=== PATIENT | female | born 1995 | race Hispanic/Latino ===

== ENCOUNTER 2019-03-31 10:25 | Emergency (ER) | payer SELFPAY ==
[2019-03-31] MEDS ORDERED: ONDANSETRON 4 MG (ODT) TAB ONE (10:54)
[2019-03-31] MEDS ORDERED: ACETAMINOPHEN 500 MG TAB ONE (11:01)
--- NOTE | 2019-03-31 11:24 | EDPHYS ---
Physician Documentation [facility] Name: Xochitl Walters Age: 23 yrs Sex: Female : 1995 Arrival Date: 03/31/2019 Time: 10:27 Bed 5 Private MD: ED Physician Claudio Beltran HPI: 03/31 10:53 This 23 yrs old Female presents to ER via Ambulatory with complaints of Flu jmm Symptoms. 10:53 The patient or guardian reports cough. Onset: The symptoms/episode began/occurred jmm gradually, 1 day(s) ago. Modifying factors: The symptoms are alleviated by nothing. the symptoms are aggravated by nothing. Associated signs and symptoms: Pertinent positives: earache, fever, sore throat, vomiting. This is a 23 year old female with no chronic medical conditions that presents to the ED with complaints of cough, ear pain, sore throat, vomiting beginning last night. Patient states children recently had similar symptoms. Patient states episodes of vomiting occur after drinking water. . Historical: - Allergies: 10:28 No Known Allergies; sv - PMHx: 10:30 None; sv - PSHx: 10:30 None; sv - Immunization history:: Adult Immunizations up to date. - Social history:: Smoking status: Patient/guardian denies using tobacco. - Ebola Screening: : No symptoms or risks identified at this time. ROS: 10:53 Constitutional: Negative for fever, chills, and weight loss. jmm 10:53 ENT: Positive for ear pain, sinus congestion, sore throat. 10:53 Cardiovascular: Positive for chest pain, with cough. 10:53 Respiratory: Positive for cough. 10:53 Abdomen/GI: Positive for vomiting. 10:53 All other systems are negative. Exam: 10:53 Constitutional: This is a well developed, well nourished patient who is awake, alert, jmm and in no acute distress. Head/Face: atraumatic. Eyes: EOMI, no conjunctival erythema appreciated 10:53 Neck: Trachea midline, Supple Chest/axilla: Normal chest wall appearance and motion. 10:53 Abdomen/GI: Non distended, soft Back: Normal ROM Skin: General appearance color normal MS/ Extremity: Moves all extremities, no obvious deformities appreciated, no edema noted to the lower extremities Neuro: Awake and alert, normal gait Psych: Behavior is normal, Mood is normal, Patient is cooperative and pleasant 10:53 ENT: TM's: erythema, that is mild, bilaterally, Posterior pharynx: Uvula: midline, erythema, that is moderate, peritonsillar mass, is not appreciated. 10:53 Cardiovascular: Rate: normal, Rhythm: regular, Pulses: no pulse deficits are appreciated. 10:53 Respiratory: the patient does not display signs of respiratory distress, Respirations: normal, Breath sounds: are clear throughout. 10:53 Abdomen/GI: Inspection: Vital Signs: 10:30 BP 113 / 79; Pulse 116; Resp 20; Temp 99.9(O); Pulse Ox 97% ; Weight 71.67 kg; Height 5 sv ft. 4 in. (162.56 cm); 11:34 BP 121 / 75; Pulse 99; Resp 19; Temp 99.1; Pulse Ox 97% ; bp 10:30 Body Mass Index 27.12 (71.67 kg, 162.56 cm) sv MDM: 10:46 Patient medically screened. [facility] 11:22 Data reviewed: vital signs, nurses notes. Counseling: I had a detailed discussion with kerri the patient and/or guardian regarding: the historical points, exam findings, and any diagnostic results supporting the discharge/admit diagnosis, lab results, radiology results, the need for outpatient follow up, to return to the emergency department if symptoms worsen or persist or if there are any questions or concerns that arise at home. ED course: Patient is alert and non toxic in appearance in the ED. Patient tolerates PO in the ED. Patient was otherwise given strict return precautions. Patient understood and agrees with the plan of care. . 03/31 10:45 Order name: Flu; Complete Time: 11:13 [facility] 03/31 10:45 Order name: Strep; Complete Time: 11:13 [facility] 03/31 10:45 Order name: Chest Pa And Lat (2 Views) XRAY [facility] 03/31 11:14 Order name: Throat Culture EDMS Administered Medications: 10:50 Drug: Zofran 4 mg Route: PO; bp 11:24 Follow up: Response: Nausea is decreased bp 11:02 Drug: Tylenol 1000 mg Route: PO; bp 11:24 Follow up: Response: No adverse reaction bp Disposition: 12:16 Co-signature as Attending Physician, Claudio Beltran MD I agree with the assessment and kdr plan of care. Disposition: 03/31/19 11:23 Discharged to Home. Impression: Influenza due to certain identified influenza viruses. - Condition is Stable. - Discharge Instructions: Influenza, Adult. - Prescriptions for Zofran ODT 4 mg Oral tablet,disintegrating - place 1 tablet by TRANSLINGUAL route every 4-6 hours; 20 tablet. Tamiflu 75 mg Oral Capsule - take 1 tablet by ORAL route every 12 hours for 5 days; 20 tablet. - Medication Reconciliation Form, Thank You Letter, Antibiotic Education, Prescription Opioid Use form. - Follow up: Private Physician; When: 2 - 3 days; Reason: Recheck today's complaints, Continuance of care, Re-evaluation by your physician. Signatures: Dispatcher [employer] EDThea Bowen, RN RN Claudio Perez MD MD [facility] Aldo Steward PA PA jmm Peltier, Brian RN RN bp Corrections: (The following items were deleted from the chart) 11:36 11:23 03/31/2019 11:23 Discharged to Home. Impression: Influenza due to certain bp identified influenza viruses. Condition is Stable. Forms are Medication Reconciliation Form, Thank You Letter, Antibiotic Education, Prescription Opioid Use. Follow up: Private Physician; When: 2 - 3 days; Reason: Recheck today's complaints, Continuance of care, Re-evaluation by your physician. francisca
--- NOTE | 2019-03-31 11:24 | ER ---
Nurse's Notes [facility] Name: Xochitl Walters Age: 23 yrs Sex: Female : 1995 Arrival Date: 03/31/2019 Time: 10:27 Bed 5 Private MD: Diagnosis: Influenza due to certain identified influenza viruses Presentation: 03/31 10:29 Presenting complaint: Patient states: body aches, chest pain with coughing, vomiting sv started yesterday. Transition of care: patient was not received from another setting of care. Onset of symptoms was March 30, 2019. Risk Assessment: Do you want to hurt yourself or someone else? Patient reports no desire to harm self or others. Care prior to arrival: None. 10:29 Method Of Arrival: Ambulatory sv 10:29 Acuity: ANGELY 3 sv 11:36 Initial Sepsis Screen: Does the patient meet any 2 criteria? HR > 90 bpm. No. Patient's bp initial sepsis screen is negative. Does the patient have a suspected source of infection? Yes: Productive cough/pneumonia. Triage Assessment: 10:30 General: Appears in no apparent distress. comfortable, ill, Behavior is cooperative, bp appropriate for age, anxious. Pain: Complains of pain in GENERAL MYALGIA. EENT: Reports nasal discharge. Neuro: No deficits noted. Cardiovascular: Rhythm is sinus tachycardia. Respiratory: Reports cough that is. GI: No signs and/or symptoms were reported involving the gastrointestinal system. : No signs and/or symptoms were reported regarding the genitourinary system. Derm: No deficits noted. Musculoskeletal: No deficits noted. Historical: - Allergies: 10:28 No Known Allergies; sv - PMHx: 10:30 None; sv - PSHx: 10:30 None; sv - Immunization history:: Adult Immunizations up to date. - Social history:: Smoking status: Patient/guardian denies using tobacco. - Ebola Screening: : No symptoms or risks identified at this time. Screenin:40 Abuse screen: Denies threats or abuse. Denies injuries from another. Nutritional bp screening: No deficits noted. Tuberculosis screening: No symptoms or risk factors identified. Fall Risk None identified. Assessment: 10:30 General: SEE TRIAGE NOTE. bp 11:34 Reassessment: PT D/C HOME AMBULATORY WITH FAMILY, DX WITH INFLUENZA. bp Vital Signs: 10:30 BP 113 / 79; Pulse 116; Resp 20; Temp 99.9(O); Pulse Ox 97% ; Weight 71.67 kg; Height 5 sv ft. 4 in. (162.56 cm); 11:34 BP 121 / 75; Pulse 99; Resp 19; Temp 99.1; Pulse Ox 97% ; bp 10:30 Body Mass Index 27.12 (71.67 kg, 162.56 cm) sv ED Course: 10:27 Patient arrived in ED. mr 10:28 Arm band placed on. sv 10:29 Triage completed. sv 10:32 Aldo Steward PA is PHCP. [facility] 10:32 Claudio eBltran MD is Attending Physician. [facility] 10:38 Christian Merlos, RN is Primary Nurse. bp 10:40 Patient has correct armband on for positive identification. Bed in low position. Call bp light in reach. Side rails up X2. 10:57 Strep Sent. bp 10:57 Flu Sent. bp 11:11 Chest Pa And Lat (2 Views) XRAY In Process Unspecified. EDMS 11:34 No provider procedures requiring assistance completed. Patient did not have IV access bp during this emergency room visit. Administered Medications: 10:50 Drug: Zofran 4 mg Route: PO; bp 11:24 Follow up: Response: Nausea is decreased bp 11:02 Drug: Tylenol 1000 mg Route: PO; bp 11:24 Follow up: Response: No adverse reaction bp Outcome: 11:23 Discharge ordered by MD. jmm 11:34 Discharged to home ambulatory, with family. bp 11:34 Condition: stable 11:34 Discharge instructions given to patient, Instructed on discharge instructions, follow up and referral plans. medication usage, Demonstrated understanding of instructions, follow-up care, medications, Prescriptions given X 2. 11:36 Patient left the ED. bp Signatures: Dispatcher [employer] EDMS Thea Fong RN RN Aldo Steward PA PA Kandi Tamayo mr Christian Merlos, RN RN bp Corrections: (The following items were deleted from the chart) 10:31 10:30 Resp 20bpm; Pulse Ox 97%; Temp 99.9F Oral; 71.67 kg; Height 5 ft. 4 in.; BMI: sv 27.1; sv
[2019-03-31 12:14] VITALS: O2SAT 97
[2019-03-31 12:15] VITALS: BP 121/75; TEMP 99.1
--- NOTE | 2019-03-31 12:15 | RAD REPORT ---
EXAM DESCRIPTION: Wendy Zambrano (2 Views)03/31/2019 11:12 am CLINICAL HISTORY: Cough COMPARISON: None FINDINGS: The lungs appear clear of acute infiltrate. The heart is normal size IMPRESSION: No acute abnormalities displayed
== END 2019-03-31 11:36 | disposition home or self-care (01) ==
LOC: ER 10:25
DX: J10.1 Influenza due to other identified influenza virus with other respiratory manifestations (principal)
CPT/HCPCS: 71046; 87070; 87081; 87804; 99284

== ENCOUNTER 2019-07-15 15:48 | Emergency (ER) | payer SELFPAY ==
[2019-07-15] MEDS ORDERED: HYDROCODONE/APAP 7.5/325 MG TAB ONE (16:30)
--- NOTE | 2019-07-15 17:44 | RAD REPORT ---
EXAM DESCRIPTION: RAD - Ankle Left 3 View -07/15/2019 5:01 pm CLINICAL HISTORY: Left ankle pain status post injury FINDINGS: No fracture or dislocation is seen.
--- NOTE | 2019-07-15 17:46 | RAD REPORT ---
EXAM DESCRIPTION: RAD - Foot Left 3 View - 07/15/2019 4:59 pm CLINICAL HISTORY: Left Foot pain FINDINGS: No fracture or dislocation is seen.
--- NOTE | 2019-07-15 17:49 | EDPHYS ---
Physician Documentation [facility] Name: Xochitl Walters Age: 24 yrs Sex: Female : 1995 Arrival Date: 07/15/2019 Time: 15:49 Bed 30 Private MD: ED Physician Kamran Fair HPI: 07/14 17:21 This 24 yrs old Female presents to ER via Wheelchair with complaints of Foot kb Pain. 17:21 The patient presents with decreased range of motion, an injury, pain, swelling, kb tenderness. The complaints affect the anterior aspect of left ankle and left foot. Context: The problem was sustained at home, resulted from the patient falling, the patient is not able to bear weight, the patient is not able to ambulate. Onset: The symptoms/episode began/occurred 2 hour(s) ago. Modifying factors: The symptoms are alleviated by nothing. the symptoms are aggravated by movement, weight bearing. Associated signs and symptoms: Pertinent positives: swelling. Treatment prior to arrival includes: no previous treatment. Severity of symptoms: At their worst the symptoms were moderate, in the emergency department the symptoms are unchanged. The patient has not experienced similar symptoms in the past. The patient has not recently seen a physician. 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 - Social history:: Smoking status: Patient reports the use of cigarette tobacco products, 3 cigarettes. ROS: 17:18 Constitutional: Negative for fever, chills, and weight loss, Cardiovascular: Negative kb for chest pain, palpitations, and edema, Respiratory: Negative for shortness of breath, cough, wheezing, and pleuritic chest pain, Abdomen/GI: Negative for abdominal pain, nausea, vomiting, diarrhea, and constipation, Skin: Negative for injury, rash, and discoloration, Neuro: Negative for headache, weakness, numbness, tingling, and seizure. 17:18 MS/extremity: Positive for decreased range of motion, pain, swelling, tenderness, of the left foot and anterior aspect of left ankle. Exam: 17:21 Constitutional: This is a well developed, well nourished patient who is awake, alert, kb and in no acute distress. Head/Face: Normocephalic, atraumatic. Neck: Trachea midline, no thyromegaly or masses palpated, and no cervical lymphadenopathy. Supple, full range of motion without nuchal rigidity, or vertebral point tenderness. No Meningismus. Chest/axilla: Normal chest wall appearance and motion. Nontender with no deformity. No lesions are appreciated. Cardiovascular: Regular rate and rhythm with a normal S1 and S2. No gallops, murmurs, or rubs. Normal PMI, no JVD. No pulse deficits. Respiratory: Lungs have equal breath sounds bilaterally, clear to auscultation and percussion. No rales, rhonchi or wheezes noted. No increased work of breathing, no retractions or nasal flaring. Abdomen/GI: Soft, non-tender, with normal bowel sounds. No distension or tympany. No guarding or rebound. No evidence of tenderness throughout. Skin: Warm, dry with normal turgor. Normal color with no rashes, no lesions, and no evidence of cellulitis. Neuro: Awake and alert, GCS 15, oriented to person, place, time, and situation. Cranial nerves II-XII grossly intact. Motor strength 5/5 in all extremities. Sensory grossly intact. Cerebellar exam normal. Normal gait. 17:21 Musculoskeletal/extremity: Extremities: grossly normal except: noted in the left foot and anterior aspect of left ankle: decreased ROM, pain, swelling, tenderness, ROM: limited active range of motion due to pain, in the left foot, Circulation is intact in all extremities. Sensation intact. Weight bearing: is unable to bear weight. Vital Signs: 16:01 BP 142 / 118; Pulse 99; Resp 19; Temp 99(TE); Pulse Ox 100% on R/A; Weight 77.11 kg tw2 (R); Height 5 ft. 3 in. (160.02 cm); Pain 10/10; 17:00 BP 103 / 79; Pulse 88; Resp 16 S; Pulse Ox 99% on R/A; Pain 3/10; aa5 17:59 BP 128 / 77; Pulse 78; Resp 16; Temp 98.4(O); Pulse Ox 99% on R/A; Pain 3/10; ls4 16:01 Body Mass Index 30.11 (77.11 kg, 160.02 cm) tw2 MDM: 16:05 Patient medically screened. kb 17:21 Data reviewed: vital signs, nurses notes. Data interpreted: Pulse oximetry: on room air kb is 100 %. Interpretation: normal. 17:48 Counseling: I had a detailed discussion with the patient and/or guardian regarding: the kb historical points, exam findings, and any diagnostic results supporting the discharge/admit diagnosis, radiology results, the need for outpatient follow up, a family practitioner, to return to the emergency department if symptoms worsen or persist or if there are any questions or concerns that arise at home. 07/14 16:05 Order name: Foot Left 3 View XRAY; Complete Time: 17:48 kb 07/14 16:12 Order name: Ankle Left 3 View XRAY; Complete Time: 17:45 kb 07/14 17:49 Order name: Frank Wrap; Complete Time: 18:04 kb Administered Medications: 16:25 Drug: [place] (7.5 mg-325 mg) 1 tabs Route: PO; aa5 17:59 Follow up: Response: No adverse reaction; Marked relief of symptoms ls4 Disposition: 18:42 Co-signature as Attending Physician, Kamran Fair MD. rn Disposition: 07/15/19 17:49 Discharged to Home. Impression: Other sprain of left foot. - Condition is Stable. - Discharge Instructions: Foot Sprain. - Prescriptions for Diclofenac Sodium 75 mg Oral Tablet, Delayed Release (E.C.) - take 1 tablet by ORAL route 2 times per day As needed; 30 tablet. - Medication Reconciliation Form, Thank You Letter, Antibiotic Education, Prescription Opioid Use form. - Follow up: Emergency Department; When: As needed; Reason: Worsening of condition. Follow up: Private Physician; When: 2 - 3 days; Reason: Recheck today's complaints, Continuance of care, Re-evaluation by your physician. Signatures: Dispatcher [employer] Tari Andrew, GURU-C CLINICAL APPLICATIONS SPECIALIST-CkKamran Villagran MD MD rn Calderon, Audri, RN RN aa5 Mckayla Dinh RN RN tw2 Roselyn Montelongo RN RN ls4 Corrections: (The following items were deleted from the chart) 18:00 17:49 07/15/2019 17:49 Discharged to Home. Impression: Other sprain of left foot. ls4 Condition is Stable. Forms are Medication Reconciliation Form, Thank You Letter, Antibiotic Education, Prescription Opioid Use. Follow up: Emergency Department; When: As needed; Reason: Worsening of condition. Follow up: Private Physician; When: 2 - 3 days; Reason: Recheck today's complaints, Continuance of care, Re-evaluation by your physician. kb
--- NOTE | 2019-07-15 17:49 | ER ---
Nurse's Notes [facility] Name: Xochitl Walters Age: 24 yrs Sex: Female : 1995 Arrival Date: 07/15/2019 Time: 15:49 Bed 30 Private MD: Diagnosis: Other sprain of left foot Presentation: 07/14 16:01 Chief complaint: Patient states: my LEFT foot hurts, it started about 2 hours ago, i tw2 was coming down the stairs and i tripped and fell, and it was fine afterwards and it just started hurting really really bad. Coronavirus screen: The patient has NOT traveled to a country currently being monitored by the CDC within the last 14 days. Ebola Screen: Patient denies travel to an Ebola-affected area in the 21 days before illness onset. Initial Sepsis Screen: Does the patient meet any 2 criteria? HR > 90 bpm. No. Patient's initial sepsis screen is negative. Does the patient have a suspected source of infection? No. Patient's initial sepsis screen is negative. Risk Assessment: Do you want to hurt yourself or someone else? Patient reports no desire to harm self or others. Note pt is crying in triage at this time. 16:01 Method Of Arrival: Wheelchair tw2 16:01 Acuity: ANGELY 4 tw2 Triage Assessment: 16:03 General: Appears uncomfortable, slender, Behavior is crying. Pain: Complains of pain in tw2 left lateral ankle, lateral aspect of left foot, left Achilles, left heel, left medial ankle, medial aspect of left foot, anterior aspect of left ankle and dorsum of left foot. 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 - Social history:: Smoking status: Patient reports the use of cigarette tobacco products, 3 cigarettes. Screenin:15 Abuse screen: Denies threats or abuse. Nutritional screening: No deficits noted. aa5 Tuberculosis screening: No symptoms or risk factors identified. Fall Risk None identified. Assessment: 16:15 General: Appears uncomfortable, Behavior is cooperative, crying. Pain: Complains of aa5 pain in left foot Pain does not radiate. Pain currently is 10 out of 10 on a pain scale. Quality of pain is described as burning, sharp, shooting, Is continuous. Neuro: Level of Consciousness is awake, alert, obeys commands, Oriented to person, place, time, situation. Cardiovascular: Capillary refill < 3 seconds is brisk in bilateral fingers toes. Respiratory: Airway is patent Respiratory effort is even, unlabored, Respiratory pattern is regular, symmetrical. GI: No signs and/or symptoms were reported involving the gastrointestinal system. : No signs and/or symptoms were reported regarding the genitourinary system. EENT: No signs and/or symptoms were reported regarding the EENT system. Derm: Skin is pink, warm \T\ dry. Musculoskeletal: Range of motion: intact in all extremities. 16:30 Reassessment: Ice pack applied to left foot . aa5 17:00 Reassessment: Patient is alert, oriented x 3, equal unlabored respirations, skin aa5 warm/dry/pink. Patient states feeling better. Pain: Pain currently is 3 out of 10 on a pain scale. 17:59 Reassessment: Patient appears in no apparent distress at this time. Patient and/or ls4 family updated on plan of care and expected duration. Pain level reassessed. Patient is alert, oriented x 3, equal unlabored respirations, skin warm/dry/pink. AUDIE WRAP TO LEFT FOOT AND ANKLE. CMS INTACT DISTAL TO INJURY. Vital Signs: 16:01 BP 142 / 118; Pulse 99; Resp 19; Temp 99(TE); Pulse Ox 100% on R/A; Weight 77.11 kg tw2 (R); Height 5 ft. 3 in. (160.02 cm); Pain 10/10; 17:00 BP 103 / 79; Pulse 88; Resp 16 S; Pulse Ox 99% on R/A; Pain 3/10; aa5 17:59 BP 128 / 77; Pulse 78; Resp 16; Temp 98.4(O); Pulse Ox 99% on R/A; Pain 3/10; ls4 16:01 Body Mass Index 30.11 (77.11 kg, 160.02 cm) tw2 ED Course: 15:49 Patient arrived in ED. ag5 16:03 Triage completed. tw2 16:03 Arm band placed on. tw2 16:05 Tari Jeff [facility]C [facility]. kb 16:05 Kamran Fair MD is Attending Physician. kb 16:15 Patient has correct armband on for positive identification. Bed in low position. Call aa5 light in reach. Side rails up X 1. 16:29 Dorothea Chapman, RN is Primary Nurse. aa5 16:59 Foot Left 3 View XRAY In Process Unspecified. EDMS 17:01 Ankle Left 3 View XRAY In Process Unspecified. EDMS 18:00 No provider procedures requiring assistance completed. Patient did not have IV access aa5 during this emergency room visit. Administered Medications: 16:25 Drug: [place] (7.5 mg-325 mg) 1 tabs Route: PO; aa5 17:59 Follow up: Response: No adverse reaction; Marked relief of symptoms ls4 Outcome: 17:49 Discharge ordered by MD. kb 17:59 Discharged to home ambulatory, with family. aa5 17:59 Condition: improved 17:59 Discharge instructions given to patient, Instructed on discharge instructions, follow up and referral plans. medication usage, Demonstrated understanding of instructions, follow-up care, medications, Prescriptions given X 1. 18:00 Patient left the ED. ls4 Signatures: Dispatcher [employer] EDVT Tari Jeff FNP-C X RAY PHYSICIAN-Vinnyb Dorothea Chapman, RN RN aa5 Mckayla Dinh RN RN tw2 Roselyn Montelongo RN RN ls4 Geoffrey Boswell ag5 Corrections: (The following items were deleted from the chart) 18:13 16:15 Reassessment: Ice pack applied to left foot . aa5 aa5
[2019-07-15 18:09] VITALS: BP 128/77; TEMP 98.4; O2SAT 99
== END 2019-07-15 18:00 | disposition home or self-care (01) ==
LOC: ER 15:48
DX: S93.692A Other sprain of left foot, initial encounter (principal); W19.XXXA Unspecified fall, initial encounter; Y93.9 Activity, unspecified; Y92.9 Unspecified place or not applicable; Z72.0 Tobacco use
CPT/HCPCS: 99283

== ENCOUNTER 2020-06-20 16:21 | Emergency (ER) | payer SELFPAY ==
[2020-06-20 16:51] LABS: Urine Blood 1+ (NEG); Urine Glucose NEGATIVE (NEG); Urine Protein NEGATIVE (NEG); Urine Specific Gravity >1.030 (1.005-1.030); Urine pH 6.5 (5.0-7.0)
[2020-06-20 17:12] LABS: BUN Blood Urea Nitrogen 14 mg/dL (7-18); Bicarbonate 28 mmol/L (21-32); Glucose Level 122 mg/dL (74-106); Potassium 3.7 mmol/L (3.5-5.1); Sodium Level 141 mmol/L (136-145)
[2020-06-20 17:18] LABS: Absolute Lymphocytes (CBC) 2.4 K/uL (0.7-4.9); Basophils % 0.3 % (0-1.3); Hematocrit 38.8 % (36.0-45.0); MPV 9.9 fL (7.6-11.3); RBC Red Blood Cell Count 4.19 M/uL (3.86-4.86)
[2020-06-20] MEDS ORDERED: NA CHLORIDE 0.9% 1,000 ML ONE (17:47)
--- NOTE | 2020-06-20 18:07 | RAD REPORT ---
EXAM DESCRIPTION: CT - Abdomen Pelvis W Contrast - 06/20/2020 5:53 pm CLINICAL HISTORY: ABD PAIN COMPARISON: <Comparisons> TECHNIQUE: Biphasic, helical CT imaging of the abdomen and pelvis was performed following 100 ml non -ionic IV contrast. No oral contrast. All CT scans are performed using dose optimization technique as appropriate and may include automated exposure control or mA/KV adjustment according to patient size. FINDINGS: No suspicious findings in the lung bases. The liver, spleen, and pancreas show no suspicious findings. Gallbladder and biliary tree are also wi thout suspicious finding. Liver shows borderline fatty infiltration Symmetric renal function is seen with no hydronephrosis or suspicious renal mass. No pyelonephritis o r acute parenchymal process. No bladder abnormalities. No adrenal abnormalities. Uterus and ovaries s how no suspicious findings. No dilated bowel loops or bowel wall thickening. No appendicitis. No free air, free fluid or inflamma tory stranding. No hernia, mass or bulky lymphadenopathy. A few small 10 mm or less sized mesenteric lymph nodes are present. No suspicious bony findings. IMPRESSION: Contrast enhanced CT abdomen and pelvis showing no significant or suspicious finding.
--- NOTE | 2020-06-20 18:12 | ER ---
Nurse's Notes [facility] Name: Xochitl Walters Age: 25 yrs Sex: Female : 1995 Arrival Date: 06/20/2020 Time: 16:23 Bed 8 Private MD: Diagnosis: Lower abdominal pain, unspecified Presentation: 06/20 16:25 Chief complaint: Patient states: was feeling light headed and dizzy this morning, has iw had abd pain for 2 months and also having abnormal BM for a couple months also , also feeling SOB , no fever chills , and also has sore throat X 2 days. Ebola Screen: Patient negative for fever greater than or equal to 101.5 degrees Fahrenheit, and additional compatible Ebola Virus Disease symptoms Patient denies exposure to infectious person. Patient denies travel to an Ebola-affected area in the 21 days before illness onset. No symptoms or risks identified at this time. Initial Sepsis Screen: Does the patient meet any 2 criteria? No. Patient's initial sepsis screen is negative. Does the patient have a suspected source of infection? No. Patient's initial sepsis screen is negative. Risk Assessment: Do you want to hurt yourself or someone else? Patient reports no desire to harm self or others. Onset of symptoms was April 2020. 16:25 Acuity: ANGELY 3 iw 16:25 Method Of Arrival: Ambulatory iw Triage Assessment: 16:40 General: Appears in no apparent distress. comfortable, Behavior is cooperative, bp appropriate for age, anxious. Pain: Complains of pain in abdomen. EENT: Reports pain when swallowing. Neuro: Level of Consciousness is awake, alert, obeys commands, Oriented to Appropriate for age. Cardiovascular: No deficits noted. Respiratory: No deficits noted. GI: Reports constipation, diarrhea. : No signs and/or symptoms were reported regarding the genitourinary system. Derm: No deficits noted. Musculoskeletal: No deficits noted. 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 - Social history:: Smoking status: Patient reports the use of cigarette tobacco products, denies chronic smoking, but will smoke occasionally. Screenin:46 Abuse screen: Denies threats or abuse. Denies injuries from another. Nutritional bp screening: No deficits noted. Tuberculosis screening: No symptoms or risk factors identified. Fall Risk None identified. Assessment: 16:40 General: SEE TRIAGE NOTE. bp 17:30 Reassessment: Patient appears in no apparent distress at this time. No changes from jl7 previously documented assessment. Patient and/or family updated on plan of care and expected duration. Pain level reassessed. Patient is alert, oriented x 3, equal unlabored respirations, skin warm/dry/pink. Vital Signs: 16:25 BP 118 / 85; Pulse 79; Resp 16; Temp 98.4; Pulse Ox 100% on R/A; Weight 72.57 kg; iw Height 5 ft. 4 in. (162.56 cm); 16:52 BP 106 / 69 Sitting; Pulse 80; Resp 16; Pulse Ox 100% on R/A; mh5 16:54 BP 105 / 68 Standing; Pulse 84; Resp 16; Pulse Ox 100% on R/A; mh5 16:56 BP 98 / 78 Supine; Pulse 76; Resp 16; Pulse Ox 100% on R/A; mh5 16:25 Body Mass Index 27.46 (72.57 kg, 162.56 cm) iw ED Course: 16:23 Patient arrived in ED. ag5 16:23 Tari Jeff FNP-C is [facility]. kb 16:23 Claudio Beltran MD is Attending Physician. kb 16:27 Triage completed. iw 16:28 Christian Merlos, KEO is Primary Nurse. bp 16:45 Arm band placed on. bp 16:46 Patient has correct armband on for positive identification. Bed in low position. Call bp light in reach. Side rails up X2. 16:50 Basic Metabolic Panel Sent. mh5 16:50 Basic Metabolic Panel Sent. 5 16:50 CBC with Diff Sent. 5 16:51 Initial lab(s) drawn, by me, sent to lab. Urine collected: clean catch specimen, 5 cloudy. Inserted saline lock: 22 gauge in left antecubital area, using aseptic technique. Blood collected. 17:52 CT Abd/Pelvis - IV Contrast Only In Process Unspecified. EDMS 18:22 No provider procedures requiring assistance completed. IV discontinued, intact, jl7 bleeding controlled, No redness/swelling at site. Pressure dressing applied. Administered Medications: 17:33 Drug: NS 0.9% 1000 ml Route: IV; Rate: 1000 ml; Site: left antecubital; jl7 18:21 Follow up: Response: No adverse reaction; IV Status: IV converted to saline lock; Order jl7 to discontinue infusion; IV Intake: 300ml Intake: 18:21 IV: 300ml; Total: 300ml. jl7 Outcome: 18:11 Discharge ordered by MD. moreno 18:22 Discharged to home ambulatory. jl7 18:22 Condition: stable 18:22 Discharge instructions given to patient, Instructed on discharge instructions, follow up and referral plans. Demonstrated understanding of instructions, follow-up care. 18:22 Patient left the ED. jl7 Signatures: Dispatcher [employer] EDTari Hammonds, MEMBERSHIP SALES ADVISOR-C MEMBERSHIP SALES ADVISOR-Ckb Diana Jacobs, RN Olga Chambers [facility] Felix Gaming RN RN jl7 Christian Merlos RN RN bp [place], Ajare [facility]
--- NOTE | 2020-06-20 18:12 | EDPHYS ---
Physician Documentation [facility] Name: Xochitl Walters Age: 25 yrs Sex: Female : 1995 Arrival Date: 06/20/2020 Time: 16:23 Bed 8 Private MD: ED Physician Claudio Beltran HPI: 06/20 17:29 This 25 yrs old Female presents to ER via Ambulatory with complaints of kb Dizziness, Abdominal Pain, Sore Throat. 17:29 The patient presents with abdominal pain in the lower abdomen. Onset: The kb symptoms/episode began/occurred 2 month(s) ago. The symptoms do not radiate. Associated signs and symptoms: Pertinent positives: diarrhea. The symptoms are described as crampy. Modifying factors: The symptoms are alleviated by nothing, the symptoms are aggravated by nothing. Severity of pain: At its worst the pain was mild in the emergency department the pain is unchanged. The patient has not experienced similar symptoms in the past. The patient has not recently seen a physician. Pt reports abd pain and diarrhea for 2 months. States she started getting dizzy yesterday and also has a sore throat. 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 - Social history:: Smoking status: Patient reports the use of cigarette tobacco products, denies chronic smoking, but will smoke occasionally. ROS: 17:28 Constitutional: Negative for fever, chills, and weight loss, Cardiovascular: Negative kb for chest pain, palpitations, and edema, Respiratory: Negative for shortness of breath, cough, wheezing, and pleuritic chest pain, Back: Negative for injury and pain, MS/Extremity: Negative for injury and deformity, Skin: Negative for injury, rash, and discoloration. 17:28 Abdomen/GI: Positive for abdominal pain, diarrhea. 17:28 Neuro: Positive for dizziness. Exam: 17:29 Constitutional: This is a well developed, well nourished patient who is awake, alert, kb and in no acute distress. Head/Face: Normocephalic, atraumatic. Neck: Trachea midline, no thyromegaly or masses palpated, and no cervical lymphadenopathy. Supple, full range of motion without nuchal rigidity, or vertebral point tenderness. No Meningismus. Chest/axilla: Normal chest wall appearance and motion. Nontender with no deformity. No lesions are appreciated. Cardiovascular: Regular rate and rhythm with a normal S1 and S2. No gallops, murmurs, or rubs. Normal PMI, no JVD. No pulse deficits. Respiratory: Lungs have equal breath sounds bilaterally, clear to auscultation and percussion. No rales, rhonchi or wheezes noted. No increased work of breathing, no retractions or nasal flaring. Skin: Warm, dry with normal turgor. Normal color with no rashes, no lesions, and no evidence of cellulitis. MS/ Extremity: Pulses equal, no cyanosis. Neurovascular intact. Full, normal range of motion. Neuro: Awake and alert, GCS 15, oriented to person, place, time, and situation. Cranial nerves II-XII grossly intact. Motor strength 5/5 in all extremities. Sensory grossly intact. Cerebellar exam normal. Normal gait. 17:29 Abdomen/GI: Inspection: abdomen appears normal, Bowel sounds: normal, in all quadrants, Palpation: soft, in all quadrants, mild abdominal tenderness, in the right lower quadrant and left lower quadrant. Vital Signs: 16:25 BP 118 / 85; Pulse 79; Resp 16; Temp 98.4; Pulse Ox 100% on R/A; Weight 72.57 kg; iw Height 5 ft. 4 in. (162.56 cm); 16:52 BP 106 / 69 Sitting; Pulse 80; Resp 16; Pulse Ox 100% on R/A; mh5 16:54 BP 105 / 68 Standing; Pulse 84; Resp 16; Pulse Ox 100% on R/A; mh5 16:56 BP 98 / 78 Supine; Pulse 76; Resp 16; Pulse Ox 100% on R/A; mh5 16:25 Body Mass Index 27.46 (72.57 kg, 162.56 cm) iw MDM: 16:32 Patient medically screened. kb 17:28 Data reviewed: vital signs, nurses notes. Data interpreted: Pulse oximetry: on room air kb is 100 %. Interpretation: normal. Counseling: I had a detailed discussion with the patient and/or guardian regarding: the historical points, exam findings, and any diagnostic results supporting the discharge/admit diagnosis, lab results, the need for outpatient follow up, a family practitioner, to return to the emergency department if symptoms worsen or persist or if there are any questions or concerns that arise at home. 06/20 16:38 Order name: Basic Metabolic Panel 06/20 16:38 Order name: CBC with Diff; Complete Time: 17:31 kb 06/20 16:39 Order name: Basic Metabolic Panel; Complete Time: 17:24 EDMS 06/20 16:40 Order name: Urine Dipstick--Ancillary (enter results); Complete Time: 16:52 em1 06/20 16:40 Order name: Urine --Ancillary (enter results); Complete Time: 16:52 [facility] 06/20 17:28 Order name: Strep; Complete Time: 17:51 kb 06/20 16:38 Order name: IV Saline Lock; Complete Time: 16:50 kb 06/20 16:38 Order name: Labs collected and sent; Complete Time: 16:50 kb 06/20 16:39 Order name: Urine Dipstick-Ancillary (obtain specimen); Complete Time: 16:40 kb 06/20 16:39 Order name: Orthostatics; Complete Time: 17:00 kb 06/20 17:32 Order name: CT Abd/Pelvis - IV Contrast Only; Complete Time: 18:08 kb 06/20 17:51 Order name: Throat Culture EDWY Administered Medications: 17:33 Drug: NS 0.9% 1000 ml Route: IV; Rate: 1000 ml; Site: left antecubital; jl7 18:21 Follow up: Response: No adverse reaction; IV Status: IV converted to saline lock; Order jl7 to discontinue infusion; IV Intake: 300ml Disposition: 06/21 06:48 Co-signature as Attending Physician, Claudio Beltran MD I agree with the assessment and kdr plan of care. Disposition: 06/20/20 18:11 Discharged to Home. Impression: Lower abdominal pain, unspecified. - Condition is Stable. - Discharge Instructions: Abdominal Pain, Adult, [id number]. - Medication Reconciliation Form, Thank You Letter, Antibiotic Education, Prescription Opioid Use form. - Follow up: Emergency Department; When: As needed; Reason: Worsening of condition. Follow up: Private Physician; When: 2 - 3 days; Reason: Recheck today's complaints, Continuance of care, Re-evaluation by your physician. Signatures: Dispatcher [employer] EDTari Hammonds, GURU-Monalisa GARVEY-Claudio Viera MD MD kdr Williams, Irene, RN RN iw Felix Gaming RN RN jl7 Corrections: (The following items were deleted from the chart) 06/20 18:22 18:11 06/20/2020 18:11 Discharged to Home. Impression: Lower abdominal pain, jl7 unspecified. Condition is Stable. Forms are Medication Reconciliation Form, Thank You Letter, Antibiotic Education, Prescription Opioid Use. Follow up: Emergency Department; When: As needed; Reason: Worsening of condition. Follow up: Private Physician; When: 2 - 3 days; Reason: Recheck today's complaints, Continuance of care, Re-evaluation by your physician. kb
[2020-06-20 18:27] VITALS: TEMP 98.4; O2SAT 100
[2020-06-20 18:31] VITALS: BP 98/78
== END 2020-06-20 18:22 | disposition home or self-care (01) ==
LOC: ER 16:21
DX: R10.30 Lower abdominal pain, unspecified (principal); F17.210 Nicotine dependence, cigarettes, uncomplicated
CPT/HCPCS: 36415; 74177; 80048; 81003; 81025; 85025; 87070; 87081; 96360; 99284; J7030; Q9967

== ENCOUNTER 2020-11-30 12:51 | Emergency (ER) | payer SELFPAY ==
--- OUTSIDE RECORDS SUMMARY | 2020-11-30 12:53 | XMS REPORT | Continuity of Care Document ---
:1995 Author Organization [facility] t Address [address] [place] [address] Care Team Providers Name Role Phone Ray East MD Attending Clinician Doctor Unassigned, [place] Attending Clinician Unavailable Willie Avendano Attending Clinician Problems This patient has no known problems. Allergies, Adverse Reactions, Alerts This patient has no known allergies or adverse reactions. Medications This patient has no known medications. Procedures This patient has no known procedures. Encounters Start End Encounter Admission Attending Care Care Encounter Source Date/Time Date/Time Type Type Clinicians Facility Department ID 2020-10-24 2020-10-24 Emergency ISABELLE East [id number] 08:52:00 10:03:00 Ray Denise [id number] [place] [id number] [place] [id number] 2020-10-24 2020-10-24 Orders Doctor CLEVE [id number] 00:00:00 00:00:00 Only Unassigned, DAKOTAH [id number] [place] [facility] [id number] 2020-08-11 2020-08-12 Emergency ISABELLE Wylie [id number] 22:18:00 01:10:00 Alanna Denise [id number] [place] [id number] [place] [id number] Results This patient has no known results.
[2020-11-30 14:17] LABS: Urine Blood 1+ (Negative); Urine Glucose Negative (Negative); Urine Protein 1+ (Negative); Urine pH 8.5 (5.0-7.0)
[2020-11-30 14:36] LABS: Absolute Lymphocytes (CBC) 0.5 K/uL (0.7-4.9); Basophils % 0.1 % (0-1.3); Hematocrit 42.6 % (36.0-45.0); Lymphocytes % 2.8 % (15.3-44.8); MPV 9.5 fL (7.6-11.3); RBC Red Blood Cell Count 4.56 M/uL (3.86-4.86)
[2020-11-30 14:45] LABS: Albumin 3.9 g/dL (3.4-5.0); Bilirubin Direct 0.1 mg/dL (0-0.2); Bilirubin Total 0.6 mg/dL (0.2-1.0); Potassium 3.6 mmol/L (3.5-5.1); Protein, Total 7.5 g/dL (6.4-8.2)
[2020-11-30] MEDS ORDERED: ONDANSETRON 4 MG/2 ML VIAL ONE (14:47)
[2020-11-30] MEDS ORDERED: MORPHINE 4 MG/ML SYR ONE (14:47)
[2020-11-30] MEDS ORDERED: NA CHLORIDE 0.9% 1,000 ML ONE (14:48)
--- NOTE | 2020-11-30 15:46 | RAD REPORT ---
EXAM DESCRIPTION: CT - Abdomen Pelvis W Contrast - 11/30/2020 3:18 pm CLINICAL HISTORY: Abdominal pain COMPARISON: June 2020 TECHNIQUE: Computed axial tomography of the abdomen pelvis was obtained. 100 cc Isovue-300 was admin istered intravenously. Oral contrast was not requested which limits evaluation of bowel. All CT scans are performed using dose optimization technique as appropriate and may include automated exposure control or mA/KV adjustment according to patient size. FINDINGS: Fatty liver. Small hiatal hernia Spleen, pancreas, adrenal and kidneys appear unremarkable. There is no evidence of diverticulitis. . Normal appendix. Small umbilical hernia 2.6 centimeter right ovarian cyst without significant free fluid IMPRESSION: 2.6 centimeter right ovarian cyst without significant free fluid
--- NOTE | 2020-11-30 16:05 | EDPHYS ---
Physician Documentation [facility] Name: Xochitl Walters Age: 25 yrs Sex: Female : 1995 Arrival Date: 11/30/2020 Time: 12:51 Bed 4 Private MD: ENEIDA Physician Josué Andrade HPI: 11/30 16:00 This 25 yrs old Female presents to ER via Wheelchair with complaints of jmm vomiting, diarrhea. 16:00 The patient presents to the emergency department with nausea, vomiting, diarrhea, jmm abdominal pain. Onset: The symptoms/episode began/occurred acutely, today. Possible causes: unknown. The symptoms are aggravated by nothing. The symptoms are alleviated by nothing. Associated signs and symptoms: Pertinent negatives: fever. 25-year-old female no Irina condition presents to the emergency department with complaints of lower abdominal pain beginning acutely early this morning. Patient states she has had 6 months of chronic diarrhea but vomiting developed today.. 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 - Social history:: Smoking status: Reported history of juuling and/or vaping. Patient uses alcohol, occasionally. ROS: 16:00 Constitutional: Negative for fever, chills, and weight loss, Cardiovascular: Negative jmm for chest pain, palpitations, and edema, Respiratory: Negative for shortness of breath, cough, wheezing, and pleuritic chest pain. 16:00 Abdomen/GI: Positive for abdominal pain, nausea and vomiting, diarrhea. 16:00 All other systems are negative. Exam: 16:00 Constitutional: This is a well developed, well nourished patient who is awake, alert, jmm and in no acute distress. Head/Face: atraumatic. Eyes: EOMI, no conjunctival erythema appreciated ENT: Moist Mucus Membranes Neck: Trachea midline, Supple Chest/axilla: Normal chest wall appearance and motion. Cardiovascular: Regular rate and rhythm. No edema appreciated Respiratory: Normal respirations, no respiratory distress appreciated 16:00 Back: Normal ROM Skin: General appearance color normal MS/ Extremity: Moves all extremities, no obvious deformities appreciated, no edema noted to the lower extremities Neuro: Awake and alert, normal gait Psych: Behavior is normal, Mood is normal, Patient is cooperative and pleasant 16:00 Abdomen/GI: Inspection: abdomen appears normal, Bowel sounds: normal, Palpation: soft, mild abdominal tenderness, in the right lower quadrant and left lower quadrant. Vital Signs: 13:40 BP 111 / 83; Pulse 83; Resp 20; Temp 98.3; Pulse Ox 100% on R/A; Weight 72.57 kg (R); kg Height 5 ft. 4 in. (162.56 cm) (R); Pain 9/10; 14:35 BP 96 / 57; Pulse 80; Resp 16; Pulse Ox 99% on R/A; zb 15:30 BP 112 / 68; Pulse 84; Resp 16; Pulse Ox 100% ; zb 16:30 BP 100 / 62; Pulse 78; Resp 16; Pulse Ox 100% on NC; zb 13:40 Body Mass Index 27.46 (72.57 kg, 162.56 cm) kg MDM: 13:49 Patient medically screened. [facility] 16:02 Data reviewed: vital signs, nurses notes. Counseling: I had a detailed discussion with francisca the patient and/or guardian regarding: the historical points, exam findings, and any diagnostic results supporting the discharge/admit diagnosis, lab results, radiology results, the need for outpatient follow up, to return to the emergency department if symptoms worsen or persist or if there are any questions or concerns that arise at home. ED course: Labs and imaging studies do not reveal any acute process or explain the patient's pain. Due to diarrhea and vomiting along with the symptoms most likely a GI process. Right I did discuss the right ovarian cyst with the patient along with the need to follow-up with [facility]. I do not suspect torsion. Patient's pain and nausea is relieved in the ED. Patient is otherwise given strict return precautions. Patient understood and agrees with plan of care.. 11/30 13:50 Order name: Basic Metabolic Panel; Complete Time: 14:48 [facility] 11/30 13:50 Order name: CBC with Diff [facility] 11/30 13:50 Order name: Hepatic Function; Complete Time: 14:48 [facility] 11/30 13:50 Order name: Lipase; Complete Time: 14:48 [facility] 11/30 14:16 Order name: Urine Dipstick-Ancillary; Complete Time: 14:27 [facility] 11/30 13:50 Order name: IV Saline Lock; Complete Time: 14:22 [facility] 11/30 14:20 Order name: CT Abd/Pelvis - IV Contrast Only; Complete Time: 15:56 [facility] 11/30 15:27 Order name: SARS-COV-2 RT PCR; Complete Time: 15:43 [facility] 11/30 13:50 Order name: Labs collected and sent; Complete Time: 14:22 [facility] 11/30 14:19 Order name: Urine Test (obtain specimen); Complete Time: 14:22 [facility] Administered Medications: 14:31 Drug: morphine 4 mg {Note: RASS +1.} Route: IVP; Site: right antecubital; zb 15:00 Follow up: Response: No adverse reaction; Pain is decreased; RASS: Alert and Calm (0) zb 14:31 Drug: Zofran (Ondansetron) 4 mg Route: IVP; Site: right antecubital; zb 17:04 Follow up: Response: No adverse reaction; Nausea is decreased zb 14:31 Drug: NS 0.9% 1000 ml {Note: RASS +1.} Route: IV; Rate: 1 bolus; Site: right zb antecubital; 17:04 Follow up: IV Status: Completed infusion; IV Intake: 1000ml zb 17:04 Drug: Tylenol 1000 mg Route: PO; zb 17:04 Follow up: Response: Medication administered at discharge. zb Disposition: 12/01 06:56 Co-signature as Attending Physician, Josué Andrade MD I agree with the assessment and jorge plan of care. Disposition Summary: 11/30/20 16:04 Discharge Ordered Location: Home [facility] Condition: Stable [facility] Diagnosis - Vomiting jmm - Diarrhea, unspecified jmm Followup: jmm - With: Private Physician - When: 2 - 3 days - Reason: Recheck today's complaints, Continuance of care, Re-evaluation by your physician Discharge Instructions: - Discharge Summary Sheet jmm - Diarrhea, Adult jmm - Vomiting, Adult jmm Forms: - Medication Reconciliation Form [facility] - Thank You Letter jmm - Antibiotic Education jmm - Prescription Opioid Use [facility] Prescriptions: - dicyclomine 20 mg Oral tablet - take 1 tablet by ORAL route 4 times per day; 20 tablet; Refills: 0, Product [facility] Selection Permitted - ondansetron 4 mg Oral tablet,disintegrating - place 1 tablet by TRANSLINGUAL route every 8 hours; 20 tablet; Refills: 0, [facility] Product Selection Permitted - orphenadrine citrate 100 mg Oral Tablet Sustained Release - take 1 tablet by ORAL route 2 times per day As needed; 20 tablet; Refills: 0, [facility] Product Selection Permitted Signatures: Dispatcher [employer] Josué Delgado MD MD cha Mickail, Joel, PA PA jmm Brown, [place], KEO RN zKaren Zaragoza RN RN kg Corrections: (The following items were deleted from the chart) 11/30 13:45 13:44 PSHx: section; kg kg 14:30 13:51 CORONAVIRUS+BRZ ordered. [facility]
--- NOTE | 2020-11-30 16:05 | ER ---
Nurse's Notes [facility] Name: Xochitl Walters Age: 25 yrs Sex: Female : 1995 Arrival Date: 11/30/2020 Time: 12:51 Bed 4 Private MD: Diagnosis: Vomiting;Diarrhea, unspecified Presentation: 11/30 13:40 Chief complaint: Patient states: Lower abdominal pain starting 2 hrs ago, vomiting kg since 1 am. Generalized numbness since 0500. Pt stated she has had diarrhea for the last 6 months. Denies any past GI problems. Denies any fevers at home. Coronavirus screen: Client denies travel out of the [place] in the last 14 days. At this time, unable to obtain information related to travel outside the [place] At this time, the client does not indicate any symptoms associated with coronavirus-19. Ebola Screen: Patient negative for fever greater than or equal to 101.5 degrees Fahrenheit, and additional compatible Ebola Virus Disease symptoms Patient denies exposure to infectious person. Patient denies travel to an Ebola-affected area in the 21 days before illness onset. Initial Sepsis Screen: Does the patient meet any 2 criteria? No. Patient's initial sepsis screen is negative. Does the patient have a suspected source of infection? No. Patient's initial sepsis screen is negative. Risk Assessment: Do you want to hurt yourself or someone else? Patient reports no desire to harm self or others. Onset of symptoms was November 30, 2020 at 11:00. 13:40 Method Of Arrival: Wheelchair kg 13:40 Acuity: ANGELY 3 kg Triage Assessment: 13:44 General: Appears uncomfortable, Behavior is cooperative, appropriate for age, anxious, kg crying, restless. Pain: Complains of pain in right lower quadrant and left lower quadrant Pain currently is 10 out of 10 on a pain scale. at worst was 9 out of 10 on a pain scale. level that patient reports is acceptable is 6 out of 10 on a pain scale. Quality of pain is described as sharp, stabbing, Pain began 3 hours ago. GI: Reports diarrhea, nausea, vomiting. 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 - Social history:: Smoking status: Reported history of juuling and/or vaping. Patient uses alcohol, occasionally. Screenin:46 Abuse screen: Denies threats or abuse. Denies injuries from another. Nutritional kg screening: No deficits noted. Tuberculosis screening: No symptoms or risk factors identified. Fall Risk None identified. No fall in past 12 months (0 pts). No secondary diagnosis (0 pts). IV access (20 points). Ambulatory Aid- None/Bed Rest/Nurse Assist (0 pts). Gait- Normal/Bed Rest/Wheelchair (0 pts) Mental Status- Oriented to own ability (0 pts). Total Hodge Fall Scale indicates No Risk (0-24 pts). Assessment: 14:32 General: Appears uncomfortable, Behavior is anxious. Pain: Complains of pain in zb forehead and abdomen, generalized body tingling Pain currently is 9 out of 10 on a pain scale. Quality of pain is described as aching, tingling. Neuro: Level of Consciousness is awake, alert, Oriented to person, place. Cardiovascular: Patient's skin is warm and dry. Respiratory: Airway is patent. GI: Abdomen is round Bowel sounds present X 4 quads. Abd is soft and non tender X 4 quads. Reports lower abdominal pain, upper abdominal pain, diarrhea, intolerance of fluids, intolerance of food, nausea, vomiting. Derm: Skin is intact, is healthy with good turgor, Skin is dry, Skin is normal. Musculoskeletal: Range of motion: intact in all extremities. 15:30 Reassessment: Patient appears in no apparent distress at this time. Patient and/or zb family updated on plan of care and expected duration. Pain level reassessed. Patient is alert, oriented x 3, equal unlabored respirations, skin warm/dry/pink. IV fluid infusing. 16:00 Reassessment: Patient appears in no apparent distress at this time. Patient and/or zb family updated on plan of care and expected duration. Pain level reassessed. Patient is alert, oriented x 3, equal unlabored respirations, skin warm/dry/pink. Patient states feeling better. Patient states symptoms have improved. 17:00 Reassessment: Patient appears in no apparent distress at this time. Patient and/or zb family updated on plan of care and expected duration. Pain level reassessed. Patient is alert, oriented x 3, equal unlabored respirations, skin warm/dry/pink. patient ambulated out. stated that she still had a headache. notified ecp. medication ordered and given. Vital Signs: 13:40 BP 111 / 83; Pulse 83; Resp 20; Temp 98.3; Pulse Ox 100% on R/A; Weight 72.57 kg (R); kg Height 5 ft. 4 in. (162.56 cm) (R); Pain 9/10; 14:35 BP 96 / 57; Pulse 80; Resp 16; Pulse Ox 99% on R/A; zb 15:30 BP 112 / 68; Pulse 84; Resp 16; Pulse Ox 100% ; zb 16:30 BP 100 / 62; Pulse 78; Resp 16; Pulse Ox 100% on NC; zb 13:40 Body Mass Index 27.46 (72.57 kg, 162.56 cm) kg ED Course: 12:51 Patient arrived in ED. ds1 13:44 Triage completed. kg 13:46 Patient has correct armband on for positive identification. kg 13:48 Aldo Steward PA is PHCP. jmm 13:48 Josué Andrade MD is Attending Physician. jmm 13:51 Felix Gaming, KEO is Primary Nurse. jl7 14:21 Bed in low position. Call light in reach. Side rails up X 1. Pillow given. Cardiac mh5 monitor on. Pulse ox on. NIBP on. 14:22 COVID swab sent to lab. mh5 14:22 Lipase Sent. mh5 14:22 Hepatic Function Sent. 5 14:22 CBC with Diff Sent. mh5 14:22 Basic Metabolic Panel Sent. 5 14:35 Arm band placed on. zb 14:35 Inserted saline lock: 20 gauge in right antecubital area, using aseptic technique. zb Blood collected. 15:18 CT Abd/Pelvis - IV Contrast Only In Process Unspecified. EDMS 17:06 No provider procedures requiring assistance completed. IV discontinued, intact, zb bleeding controlled, No redness/swelling at site. Pressure dressing applied. Administered Medications: 14:31 Drug: morphine 4 mg {Note: RASS +1.} Route: IVP; Site: right antecubital; zb 15:00 Follow up: Response: No adverse reaction; Pain is decreased; RASS: Alert and Calm (0) zb 14:31 Drug: Zofran (Ondansetron) 4 mg Route: IVP; Site: right antecubital; zb 17:04 Follow up: Response: No adverse reaction; Nausea is decreased zb 14:31 Drug: NS 0.9% 1000 ml {Note: RASS +1.} Route: IV; Rate: 1 bolus; Site: right zb antecubital; 17:04 Follow up: IV Status: Completed infusion; IV Intake: 1000ml zb 17:04 Drug: Tylenol 1000 mg Route: PO; zb 17:04 Follow up: Response: Medication administered at discharge. zb Intake: 17:04 IV: 1000ml; Total: 1000ml. zb Outcome: 16:04 Discharge ordered by . francisca 17:06 Discharged to home ambulatory, with family. zb 17:06 Condition: stable 17:06 Discharge instructions given to patient, Instructed on discharge instructions, follow up and referral plans. medication usage, Demonstrated understanding of instructions, follow-up care, medications, Prescriptions given X 3. 17:06 Patient left the ED. zb Signatures: Dispatcher [employer] EDMS Aldo Steward PA PA jmm Sanford, Demi ds1 Martinez, Maria 5 Felix Gaming RN RN jl7 Brown, Zipporah, RN RN zb Graham, Kristen, RN RN kg Corrections: (The following items were deleted from the chart) 13:45 13:44 PSHx: section; kg kg 14:30 14:22 CORONAVIRUS+MR.LAB.BRZ drawn and sent. 5 EDRI
[2020-11-30 17:12] VITALS: TEMP 98.3
[2020-11-30] MEDS ORDERED: ACETAMINOPHEN 500 MG TAB ONE (17:13)
[2020-11-30 17:16] VITALS: O2SAT 100
[2020-11-30 17:18] VITALS: BP 100/62
[2020-11-30 17:41] LABS: Blood Morphology Comment NOT SEEN (NOT SEEN); Platelet Estimate ADEQ
== END 2020-11-30 17:06 | disposition home or self-care (01) ==
LOC: ER 12:51
DX: R19.7 Diarrhea, unspecified (principal); Z20.822 Contact with and (suspected) exposure to COVID-19
CPT/HCPCS: 36415; 74177; 80048; 80076; 81003; 83690; 85025; 96361; 96374; 96375; 99284; J2405; J7030; Q9967; U0003

== ENCOUNTER 2021-07-09 10:30 | Emergency (ER) | payer SELFPAY ==
--- OUTSIDE RECORDS SUMMARY | 2021-07-09 10:33 | XMS REPORT | Continuity of Care Document ---
:1995 Author Organization [facility] t Address [address] [place] [address] Care Team Providers Name Role Phone PCP, PATIENT DOES NOT HAVE A Primary Care Physician UnavailAngelina Hyde Attending Clinician Unavailable Monalisa ROTH Attending Clinician Unavailable Monalisa Barreto Attending Clinician Cruzito DAVIDSON Attending Clinician Doctor Unassigned, Name Attending Clinician Unavailable Inessa PATTERSON, S Attending Clinician Payers Payer Name Policy Type Policy Number Effective Date Expiration Date Willie yang [id number] 2017 00:00:00 Advance Directives Directive Decision Effective Termination Comments Source Date Date Healthcare Agents on N/A [facility]NameRelations[facility]HealthHol[facility] Agent Medical RelationshipCommunicationJessica Branch [facility]OtherHealth Care [phone] (Mobile) Problems Condition Condition Condition Status Onset Resolution Last Treating Co mments Source Name Details Category Date Date Treatment Clinician Date 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 on on Will need cervical cervical repeat cytology cytology pap in 3 with with years negative negative 05/2024 high risk high risk human human papilloma papilloma virus virus (HPV) test (HPV) test result result Status Status Disease Active Univers post tubal post tubal 8-18 it y of ligation ligation 00:00: [address] Allergies, Adverse Reactions, Alerts Allergy Allergy Status Severity Reaction(s) Onset Inactive Treating Comm ents Source Name Type Date Date Clinician NO KNOWN Drug Active Univers ALLERGIE Class ity of S [facility] Social History Social Habit Start Date Stop Date Quantity Comments Source Exposure to Not sure [facility] SARS-CoV-2 (event) [facility] Alcohol intake 2021-05-28 2021-05-28 Current University 00:00:00 00:00:00 non-drinker of [facility] alcohol Branch (finding) Cigarettes smoked 2021-05-06 2021-05-06 Univers ity of current (pack per 00:00:00 00:00:00 [facility] ) - Reported Branch Tobacco use and 2021-05-06 2021-05-06 Never used Universit y of exposure 00:00:00 00:00:00 [facility] History of tobacco 2016-04-09 Smoker Univer sity of use 00:00:00 [facility] Sex Ass[birth year] Universit y of 00:00:00 00:00:00 [facility] Smoking Status Start Date Stop Date Source Current every day smoker 2021-05-06 00:00:00 Uni versity of [facility] Medications Ordered Filled Start Stop Current Ordering Indication Dosage Frequency Signature Comments Components Source Medication Medication Date Date Medication? Clinician (SIG) Name Name No known 2020-05 No Univers medications 2- ity of 14:51: [address] Immunizations Ordered Filled Immunization Date Status Comments Sour e Immunization Name Name HPV9 2021-05-06 Completed University 00:00:00 [facility] TDAP 2016-10-06 Completed University 00:00:00 [facility] Influenza Virus 2016-05-19 Completed Universit y of Vaccine Quad IM 3+ 00:00:00 [facility] PPD (TB) 2016-04-26 Completed [facility] 00:00:00 [facility] Procedures This patient has no known procedures. Encounters Start End Encounter Admission Attending Care Care Encounter Source Date/Time Date/Time Type Type Clinicians Facility Department ID 2021-07-07 2021-07-07 Outpatient R [facility] [id number] Univers 13:30:00 13:30:00 [id number] ity [facility] 2021-07-07 2021-07-07 Outpatient R TIKI [facility] [id number] Univers 13:30:00 13:30:00 RAULBERKLEYValentine javier o anamika [facility] 2021-06-09 2021-06-09 Outpatient R [facility] [id number] Univers 09:30:00 09:30:00 [id number] ity [facility] 2021-06-09 2021-06-09 Outpatient R TIKI [facility] [id number] Univers 09:30:00 09:30:00 MIRIAM herrera o anamika [facility] 2021-06-06 2021-06-06 Outpatient R CORALRADHA, [facility] [id number] Univers 09:30:00 09:30:00 ANN MARIE willson [facility] 2021-05-28 2021-05-28 [facility] [id number] Univers 00:00:00 00:00:00 Ann Marie Sheldon [id number] Sandip as MATERNAL [id number] [facility] ical & CHILD [address] [place] [address] 2020-10-24 2020-10-24 [facility] [id number] 08:52:00 10:03:00 Ray Denise [id number] [place] [id number] [place] [id number] 2020-10-24 2020-10-24 Orders Doctor CLEVE [id number] 00:00:00 00:00:00 Only Unassigned, DAKOTAH [id number] [place] [facility] [id number] 2020-08-11 2020-08-12 [facility] [id number] 22:18:00 01:10:00 Alanna Denise [id number] [place] [id number] [place] [id number] Results This patient has no known results.
[2021-07-09] MEDS ORDERED: MORPHINE 4 MG/ML SYR ONE ×2 (11:25→13:34)
[2021-07-09] MEDS ORDERED: ONDANSETRON 4 MG/2 ML VIAL ONE ×2 (11:25→13:34)
[2021-07-09] MEDS ORDERED: NA CHLORIDE 0.9% 1,000 ML ONE ×2 (11:26→13:35)
[2021-07-09 11:41] LABS: Hematocrit 43.5 % (36.0-45.0); Lymphocytes % 6.2 % (15.3-44.8); MPV 8.8 fL (7.6-11.3); RBC Red Blood Cell Count 4.66 M/uL (3.86-4.86)
[2021-07-09 11:41] LABS: Urine Blood Trace-intact (Negative); Urine Glucose Negative (Negative); Urine Protein Trace (Negative)
[2021-07-09] MEDS ORDERED: FAMOTIDINE 20 MG/2 ML VIAL IV ONE (11:45)
[2021-07-09 12:06] LABS: ALT/SGPT 33 U/L (12-78); AST/SGOT 15 U/L (15-37); Alkaline Phosphatase 98 U/L (45-117); BUN Blood Urea Nitrogen 16 mg/dL (7-18); Bicarbonate 27 mmol/L (21-32); Bilirubin Direct 0.2 mg/dL (0-0.2); Bilirubin Total 0.6 mg/dL (0.2-1.0); Glucose Level 127 mg/dL (74-106); Lipase 66 U/L (73-393); Potassium 3.9 mmol/L (3.5-5.1); Protein, Total 8.2 g/dL (6.4-8.2); Sodium Level 139 mmol/L (136-145)
--- NOTE | 2021-07-09 14:03 | EDPHYS ---
Physician Documentation [facility] Name: Xochitl Walters Age: 26 yrs Sex: Female : 1995 Arrival Date: 07/09/2021 Time: 10:33 Bed 16 Private MD: ED Physician Giles Rossi HPI: 07/09 11:45 This 26 yrs old Female presents to ER via Ambulatory with complaints of ma2 Abdominal Pain, Vomiting/Diarrhea. 11:45 The patient presents to the emergency department with nausea, vomiting, diarrhea. ma2 Onset: The symptoms/episode began/occurred gradually, 1 day(s) ago. Associated signs and symptoms: Pertinent negatives: belching, dysuria, flatulence. Severity of symptoms: At their worst the symptoms were moderate in the emergency department the symptoms are unchanged. 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 - Social history:: Smoking status: Patient reports the use of cigarette tobacco products, denies chronic smoking, but will smoke occasionally. - Family history:: not pertinent. ROS: 11:45 Constitutional: Negative for fever, chills, and weight loss. ma2 11:45 All other systems are negative. Exam: 11:45 Constitutional: This is a well developed, well nourished patient who is awake, alert, ma2 and in no acute distress. Head/Face: Normocephalic, atraumatic. Eyes: Pupils equal round and reactive to light, extra-ocular motions intact. Lids and lashes normal. Conjunctiva and sclera are non-icteric and not injected. Cornea within normal limits. Periorbital areas with no swelling, redness, or edema. ENT: Nares patent. No nasal discharge, no septal abnormalities noted. Tympanic membranes are normal and external auditory canals are clear. Oropharynx with no redness, swelling, or masses, exudates, or evidence of obstruction, uvula midline. Mucous membranes moist. Neck: Trachea midline, no thyromegaly or masses palpated, and no cervical lymphadenopathy. Supple, full range of motion without nuchal rigidity, or vertebral point tenderness. No Meningismus. Chest/axilla: Normal chest wall appearance and motion. Nontender with no deformity. No lesions are appreciated. Cardiovascular: Regular rate and rhythm with a normal S1 and S2. No gallops, murmurs, or rubs. Normal PMI, no JVD. No pulse deficits. Respiratory: Lungs have equal breath sounds bilaterally, clear to auscultation and percussion. No rales, rhonchi or wheezes noted. No increased work of breathing, no retractions or nasal flaring. Abdomen/GI: Soft, non-tender, with normal bowel sounds. No distension or tympany. No guarding or rebound. No evidence of tenderness throughout. Back: No spinal tenderness. No costovertebral tenderness. Full range of motion. Skin: Warm, dry with normal turgor. Normal color with no rashes, no lesions, and no evidence of cellulitis. MS/ Extremity: Pulses equal, no cyanosis. Neurovascular intact. Full, normal range of motion. Vital Signs: 10:58 BP 116 / 86; Pulse 83; Resp 16 S; Temp 97.4; Pulse Ox 97% on R/A; Weight 71.67 kg (R); jg9 Height 5 ft. 3 in. (160.02 cm) (R); 12:08 BP 95 / 56; Pulse 81; Resp 16; Pulse Ox 100% on R/A; ab2 13:28 BP 103 / 65; Pulse 78; Resp 16; Pulse Ox 98% on R/A; ab2 14:25 BP 104 / 87; Pulse 79; Resp 16; Pulse Ox 100% on R/A; ab2 10:58 Body Mass Index 27.99 (71.67 kg, 160.02 cm) jg9 MDM: 11:46 Differential diagnosis: Nonspecific abd pain, gastritis, pancreatitis, viral ma2 gastroenteritis, gastroenteritis. Data reviewed: vital signs, nurses notes. Counseling: I had a detailed discussion with the patient and/or guardian regarding: the historical points, exam findings, and any diagnostic results supporting the discharge/admit diagnosis, the presence of at least one elevated blood pressure reading (>120/80) during this emergency department visit, the need for outpatient follow up. Response to treatment: the patient's symptoms have resolved after treatment. 14:02 Patient medically screened. ma2 07/09 11:13 Order name: Basic Metabolic Panel; Complete Time: 13:18 ab2 07/09 11:13 Order name: CBC with Diff; Complete Time: 11:51 ab2 07/09 11:13 Order name: Hepatic Function; Complete Time: 13:18 ab2 07/09 11:13 Order name: Lipase; Complete Time: 13:18 ab2 07/09 11:33 Order name: Hepatic Function ma2 07/09 11:33 Order name: Lipase ma2 07/09 11:41 Order name: Urine Dipstick-Ancillary; Complete Time: 11:51 EDMS 07/09 11:42 Order name: Urine Dipstick-Ancillary; Complete Time: 11:51 EDMS 07/09 11:44 Order name: Urine --Ancillary (enter results); Complete Time: 13:18 bd 07/09 11:13 Order name: IV Saline Lock; Complete Time: 11:33 ab2 07/09 11:13 Order name: Labs collected and sent; Complete Time: 11:33 ab2 07/09 11:13 Order name: EKG - Nurse/Tech; Complete Time: 11:24 ab2 07/09 11:33 Order name: IV Saline Lock; Complete Time: 11:46 ma2 07/09 11:34 Order name: Urine Test (obtain specimen); Complete Time: 11:44 ia2 Administered Medications: 11:33 Drug: morphine 4 mg Route: IVP; Site: left antecubital; ab2 13:27 Follow up: Response: No adverse reaction ab2 11:33 Drug: Zofran (Ondansetron) 4 mg Route: IVP; Site: left antecubital; ab2 13:27 Follow up: Response: No adverse reaction ab2 11:33 Drug: NS 0.9% 1000 ml Route: IV; Rate: 1 bolus; Site: left antecubital; ab2 13:27 Follow up: Response: No adverse reaction; IV Status: Completed infusion ab2 11:45 Drug: Pepcid (famotidine) 10 mg Route: IVP; Site: left antecubital; ab2 13:27 Follow up: Response: No adverse reaction ab2 13:35 Drug: NS 0.9% 1000 ml Route: IV; Rate: 1 bolus; Site: left antecubital; ab2 14:05 Follow up: Response: No adverse reaction; IV Status: Completed infusion ab2 13:36 Not Given (Patient Refused): Phenergan (promethazine) 25 mg IVP once ab2 13:36 Drug: Zofran (Ondansetron) 4 mg Route: IVP; Site: left antecubital; ab2 14:05 Follow up: Response: No adverse reaction ab2 13:37 Drug: morphine 4 mg Route: IVP; Site: left antecubital; ab2 14:05 Follow up: Response: No adverse reaction ab2 Disposition Summary: 07/09/21 14:02 Discharge Ordered Location: Home ma2 Condition: Stable ma2 Diagnosis - Upper abdominal pain, unspecified ma2 Followup: ma2 - With: Private Physician - When: Tomorrow - Reason: If symptoms return, Continuance of care Discharge Instructions: - Discharge Summary Sheet ma2 - Abdominal Pain, Adult ma2 Forms: - Medication Reconciliation Form ma2 - Thank You Letter ma2 - Antibiotic Education ma2 - Prescription Opioid Use ma2 Prescriptions: - Zofran 4 mg Oral Tablet - take 1 tablet by ORAL route every 12 hours As needed; 20 tablet; Refills: 0, ma2 Product Selection Permitted - Diclofenac Sodium 75 mg Oral Tablet Sustained Release - take 1 tablet by ORAL route 2 times per day; 30 tablet; Refills: 0, Product ma2 Selection Permitted - Pepcid 20 mg Oral Tablet - take 1 tablet by ORAL route once daily; 20 tablet; Refills: 0, Product ma2 Selection Permitted Signatures: Dispatcher [employer] [facility] Giles Rossi MD MD ma2 Rafia Schuster RN RN jg9 Anthony Mark ab2 Corrections: (The following items were deleted from the chart) 11:42 11:33 Basic Metabolic Panel ordered. EDMS EDMS 11:42 11:33 Liver (Hepatic) Function ordered. EDHI EDMS 11:42 11:33 Lipase ordered. EDHI EDMS 11:42 11:34 CBC+H.LAB.BRZ ordered. EDMS EDMS 11:46 11:33 Labs collected and sent ordered. ma2 ab2
--- NOTE | 2021-07-09 14:03 | ER ---
Nurse's Notes [facility] Name: Xochitl Walters Age: 26 yrs Sex: Female : 1995 Arrival Date: 07/09/2021 Time: 10:33 Bed 16 Private MD: Diagnosis: Upper abdominal pain, unspecified Presentation: 07/09 10:58 Chief complaint: Patient states: I ate Sonic last night and afterwards I started jg9 feeling sick, multiple episodes of vomiting and diarrhea since last night, epi-gastric burning discomfort. Coronavirus screen: Vaccine status: Patient reports being unvaccinated. Ebola Screen: Patient negative for fever greater than or equal to 101.5 degrees Fahrenheit, and additional compatible Ebola Virus Disease symptoms Patient denies exposure to infectious person. Patient denies travel to an Ebola-affected area in the 21 days before illness onset. Initial Sepsis Screen: Does the patient meet any 2 criteria? No. Patient's initial sepsis screen is negative. Does the patient have a suspected source of infection? No. Patient's initial sepsis screen is negative. Risk Assessment: Do you want to hurt yourself or someone else? Patient reports no desire to harm self or others. Onset of symptoms was July 08, 2021 at 23:00. 10:58 Method Of Arrival: Ambulatory 9 10:58 Acuity: ANGELY 3 jg9 Triage Assessment: 11:01 General: Appears uncomfortable, Behavior is cooperative, anxious. Pain: Complains of jg9 pain in chest-epi gastric. 11:02 GI: Reports upper abdominal pain, nausea, vomiting, since 1100pm lastnight. 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 - Social history:: Smoking status: Patient reports the use of cigarette tobacco products, denies chronic smoking, but will smoke occasionally. - Family history:: not pertinent. Screenin:02 Abuse screen: Denies threats or abuse. Denies injuries from another. Nutritional jg9 screening: No deficits noted. Tuberculosis screening: No symptoms or risk factors identified. Fall Risk None identified. Assessment: 11:03 GI: Bowel sounds present X 4 quads. Abd is soft and non tender X 4 quads. jg9 11:20 Pain: Complains of pain in abdomen Pain currently is 10 out of 10 on a pain scale. ab2 Neuro: No deficits noted. Level of Consciousness is awake, alert, obeys commands, Oriented to person, place, time, situation, Appropriate for age Director Internal Control are equal bilaterally Moves all extremities. Gait is steady, Speech is normal, Facial symmetry appears normal. Cardiovascular: No deficits noted. Reports chest pain, shortness of breath, Heart tones S1 S2 present Patient's skin is warm and dry. Pulses are all present. Rhythm is sinus rhythm. Respiratory: Airway is patent Respiratory effort is even, unlabored, Respiratory pattern is regular, symmetrical, Breath sounds are clear bilaterally. : No deficits noted. No signs and/or symptoms were reported regarding the genitourinary system. EENT: No deficits noted. No signs and/or symptoms were reported regarding the EENT system. Derm: No deficits noted. No signs and/or symptoms reported regarding the dermatologic system. Skin is intact, is healthy with good turgor, Skin is pink, warm \T\ dry. Musculoskeletal: No deficits noted. No signs and/or symptoms reported regarding the musculoskeletal system. 11:34 General: Appears in no apparent distress. uncomfortable, Behavior is calm, cooperative, ab2 appropriate for age. 12:09 Reassessment: Patient appears in no apparent distress at this time. Pt states morphine ab2 helped pain. Pt resting comfortably. Denies any needs. Awaiting lab results. 13:28 Reassessment: Pt c/o pain ED physician notified. ab2 Vital Signs: 10:58 BP 116 / 86; Pulse 83; Resp 16 S; Temp 97.4; Pulse Ox 97% on R/A; Weight 71.67 kg (R); jg9 Height 5 ft. 3 in. (160.02 cm) (R); 12:08 BP 95 / 56; Pulse 81; Resp 16; Pulse Ox 100% on R/A; ab2 13:28 BP 103 / 65; Pulse 78; Resp 16; Pulse Ox 98% on R/A; ab2 14:25 BP 104 / 87; Pulse 79; Resp 16; Pulse Ox 100% on R/A; ab2 10:58 Body Mass Index 27.99 (71.67 kg, 160.02 cm) jg9 ED Course: 10:33 Patient arrived in ED. mr 11:01 Triage completed. jg9 11:02 Arm band placed on right wrist. jg9 11:04 Giles Rossi MD is Attending Physician. ma2 11:33 Anthony Mark is Primary Nurse. ab2 11:33 No provider procedures requiring assistance completed. Inserted saline lock: 20 gauge ab2 in left antecubital area, using aseptic technique. Blood collected. 11:33 Basic Metabolic Panel Sent. ab2 11:33 CBC with Diff Sent. ab2 11:33 Hepatic Function Sent. ab2 11:33 Lipase Sent. ab2 11:35 Patient has correct armband on for positive identification. Bed in low position. Call ab2 light in reach. Side rails up X2. 11:44 Urine Dipstick-Ancillary Sent. ab2 11:46 Hepatic Function Sent. ab2 11:46 Lipase Sent. ab2 14:25 IV discontinued, intact, bleeding controlled, No redness/swelling at site. Pressure ab2 dressing applied. Administered Medications: 11:33 Drug: morphine 4 mg Route: IVP; Site: left antecubital; ab2 13:27 Follow up: Response: No adverse reaction ab2 11:33 Drug: Zofran (Ondansetron) 4 mg Route: IVP; Site: left antecubital; ab2 13:27 Follow up: Response: No adverse reaction ab2 11:33 Drug: NS 0.9% 1000 ml Route: IV; Rate: 1 bolus; Site: left antecubital; ab2 13:27 Follow up: Response: No adverse reaction; IV Status: Completed infusion ab2 11:45 Drug: Pepcid (famotidine) 10 mg Route: IVP; Site: left antecubital; ab2 13:27 Follow up: Response: No adverse reaction ab2 13:35 Drug: NS 0.9% 1000 ml Route: IV; Rate: 1 bolus; Site: left antecubital; ab2 14:05 Follow up: Response: No adverse reaction; IV Status: Completed infusion ab2 13:36 Not Given (Patient Refused): Phenergan (promethazine) 25 mg IVP once ab2 13:36 Drug: Zofran (Ondansetron) 4 mg Route: IVP; Site: left antecubital; ab2 14:05 Follow up: Response: No adverse reaction ab2 13:37 Drug: morphine 4 mg Route: IVP; Site: left antecubital; ab2 14:05 Follow up: Response: No adverse reaction ab2 Outcome: 14:02 Discharge ordered by . ma2 14:25 Discharged to home ambulatory. ab2 14:25 Condition: good 14:25 Discharge instructions given to patient, Instructed on discharge instructions, follow up and referral plans. medication usage, Demonstrated understanding of instructions, follow-up care, medications, Prescriptions given X 3. 14:26 Patient left the ED. ab2 Signatures: Kandi Odell mr Flo, MD LETY Skaggs ma2 Rafia Schuster RN RN jg9 Anthony Mark ab2 Corrections: (The following items were deleted from the chart) 13:36 13:36 Phenergan (promethazine) 25 mg IVP in left antecubital ab2 ab2
[2021-07-09 14:41] VITALS: TEMP 97.4
[2021-07-09 14:44] VITALS: BP 104/87; O2SAT 100
== END 2021-07-09 14:26 | disposition home or self-care (01) ==
LOC: ER 10:30
DX: R10.10 Upper abdominal pain, unspecified (principal); F17.210 Nicotine dependence, cigarettes, uncomplicated
CPT/HCPCS: 36415; 80048; 80076; 81003; 81025; 83690; 85025; 93005; 96361; 96374; 96375; 99284; J2405; J7030

== ENCOUNTER 2022-01-05 16:50 | Emergency (ER) | payer SELFPAY ==
--- OUTSIDE RECORDS SUMMARY | 2022-01-05 16:53 | XMS REPORT | Continuity of Care Document ---
:1995 Author Organization [facility] t Address [address] [place] [address] Care Team Providers Name Role Phone Pcp, Patient Does Not Have A Primary Care Physician [phone] HARDIK TAYLOR Attending Clinician Unavailable Hardik Taylor MD Attending Clinician Ann Marie Barreto Attending Clinician [phone] MIRIAM FAIRBANKS Attending Clinician Unavailable ANN MARIE ROTH Attending Clinician Unavailable Ray East MD Attending Clinician Doctor Unassigned, Kyle Attending Clinician Unavailable Alanna Avendano Attending Clinician Payers Payer Name Policy Type Policy Number Effective Date Expiration Date S ource Problems Condition Condition Condition Status Onset Resolution Last Treating Co mments Source Name Details Category Date Date Treatment Clinician Date 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 00:00: g of this [place] changes of changes of 00 note Me [...] 8-18 it y of ligation ligation 00:00: [address] Allergies, Adverse Reactions, Alerts Allergy Allergy Status Severity Reaction(s) Onset Inactive Treating Comm ents Source Name Type Date Date Clinician NO KNOWN Drug Active Univers ALLERGIE Class ity of S [facility] Social History Social Habit Start Date Stop Date Quantity Comments Source Exposure to 2021-12-22 2022-01-01 Not sure [facility] SARS-CoV-2 (event) 00:00:00 13:43:00 [facility] Alcohol intake 2022-01-01 2022-01-01 Current University of 00:00:00 00:00:00 non-drinker of [facility] alcohol Branch (finding) Cigarettes smoked 2021-05-06 2021-05-06 Univers ity of current (pack per 00:00:00 00:00:00 [facility] ) - Reported Branch Tobacco use and 2021-05-06 2021-05-06 Smokeless Universit y of exposure 00:00:00 00:00:00 tobacco non-user [facility] History of tobacco 2016-04-09 Cigarette Smoker University of use 00:00:00 [facility] Sex Ass[birth year] At [birth year] Universit y of 00:00:00 00:00:00 [facility] Smoking Status Start Date Stop Date Source Smokes tobacco daily 2021-05-06 00:00:00 Univers ity of [facility] Medications Ordered Filled Start Stop Current Ordering Indication Dosage Frequency Signature Comments Components Source Medication Medication Date Date Medication? Clinician (SIG) Name Name KCL No 40meq 40 mEq, Univers (KLOR-CON 01-01 Oral, ity of M20) tablet 23:45: 22:46 [place] 1 [place] 40 mEq 00 :00 dose, On Medical [facility] 01/01/22 at 1845, Routine ketorolac No 30mg 30 mg, Unive rs (TORADOL) 01-01 Slow IV ity of injection 22:45: 22:01 Push, [place] 30 mg 00 :00 ONCE, 1 Medical dose, On Branch [facility] 01/01/22 at 1745, Routine ondansetron No 4mg 4 mg, Slow Univers (ZOFRAN 8-25 08-25 IV Push, ity of (PF)) 21:45: 22:01 ONCE, 1 [place] injection 4 00 :00 dose, On Medi nas mg Rayna [place] 01/01/22 at 1645, OPAL dicyclomine Yes [id number] 20mg Take 1 Univers 20 mg 8-25 tablet by ity of tablet 00:00: mouth [place] 00 every 6 Medical (six) Branch hours as needed for Abdominal pain. ondansetron Yes [id number] 4mg Take 1 Univers (ZOFRAN) 4 8-25 tablet by ity of mg tablet 00:00: mouth [place] 00 every 8 Medical (eight) Branch hours as needed for Nausea and Vomiting (N/V). ibuprofen Yes [id number] 800mg Take 1 U nivers 800 mg 8-25 tablet by ity of tablet 00:00: mouth [place] 00 every 8 Medical (eight) Branch hours as needed for Pain (scale 4-6) or Temp > 38.5 C. No known 2020-05 No Univers medications 2-28 ity of 14:51: [address] No known 2020-05 No Univers medications 2-28 ity of 14:51: [address] Immunizations Ordered Filled Immunization Date Status Comments [facility] e Immunization Name Name [facility] 2021-05-06 Completed University of 00:00:00 [facility] 2021-05-06 Completed University of 00:00:00 [facility]9 2021-05-06 Completed University of 00:00:00 [facility] TDAP 2016-10-06 Completed University of 00:00:00 [facility] TDAP 2016-10-06 Completed University of 00:00:00 [facility] TDAP 2016-10-06 Completed University of 00:00:00 [facility] Influenza Virus 2016-05-19 Completed Universit y of Vaccine Quad IM 3+ 00:00:00 [facility] Influenza Virus 2016-05-19 Completed Universit y of Vaccine Quad IM 3+ 00:00:00 [facility] Influenza Virus 2016-05-19 Completed Universit y of Vaccine Quad IM 3+ 00:00:00 [facility] PPD (TB) 2016-04-26 Completed University of 00:00:00 [facility] PPD (TB) 2016-04-26 Completed University 00:00:00 [facility] PPD (TB) 2016-04-26 Completed [facility] 00:00:00 [facility] Vital Signs Vital Name Observation Time Observation Value Comments Source Systolic blood 2022-01-01 22:00:00 102 mm[Hg] Univer sity of pressure [facility] Diastolic blood 2022-01-01 22:00:00 73 [facility]Hg[facility] rate 2022-01-01 22:00:00 72 /min [facility] Respiratory rate 2022-01-01 22:00:00 20 /min [facility] Oxygen saturation in 2022-01-01 22:00:00 99 /min [facility] Arterial blood by [facility] Pulse oximetry [place] Body temperature 2022-01-01 18:45:00 37.22 [facility] Body height 2022-01-01 18:45:00 162.6 cm [facility] Body weight 2022-01-01 18:45:00 70.806 kg [facility] BMI 2022-01-01 18:45:00 26.79 kg/m2 [facility] Procedures Procedure Date / Time Performed Performing Clinician Sour e RAPID STREP SCREEN 2022-01-01 22:06:00 Hardik Taylor [facility] FOR GROUP A Medical Branch COMP. METABOLIC PANEL 2022-01-01 21:34:00 Hardik Taylor [facility] ([id number]) Medical [place] CBC WITH DIFF 2022-01-01 21:34:00 Hardik Taylor [facility] COVID-19 (ID NOW 2022-01-01 21:34:00 Hardik Taylor [facility] RAPID TESTING) [facility] POCT TEST 2022-01-01 21:33:00 Hardik Taylor [facility] CONSENT/REFUSAL FOR 2022-01-01 18:30:18 Doctor Unassigned, No Un [facility] DIAGNOSIS AND Name Medical Branch TREATMENT Encounters Start End Encounter Admission Attending Care Care Encounter Source Date/Time Date/Time Type Type Clinicians Facility Department ID 2022-01-012022-01-01 Emergency X [facility] ERT [id number] Univers 13:48:00 18:02:[address] [facility] 2022-01-01 2022-01-01 Emergency [facility] [id number] Univers 13:48:00 18:02:00 [facility] [id number] ity [facility] [id number] [place] [facility] [id number] [address] 2021-07-30 2021-07-30 [facility] [id number] Univers 00:00:00 00:00:00 Ann Marie Sheldon PROCEDURES ANALYST [id number] ity [facility] [id number] Sandip as MATERNAL [id number] Med ical & CHILD [address] [place] [address] 2021-07-29 2021-07-29 Outpatient R [facility] [id number] Univers 14:30:00 14:30:[id number] [facility] 2021-07-29 2021-07-29 [facility] [id number] Univers 14:30:00 14:30:00 MIRIAM mccullough [facility] 2021-07-07 2021-07-07 Outpatient R [facility] [id number] Univers 13:30:00 13:30:[id number] [facility] 2021-07-07 2021-07-07 Outpatient R TIKI [facility] [id number] Univers 13:30:00 13:30:00 MIRIAM mccullough [facility] 2021-06-09 2021-06-09 Outpatient R [facility] [id number] Univers 09:30:00 09:30:[id number] [facility] 2021-06-09 2021-06-09 Outpatient R TIKI [facility] [id number] Univers 09:30:00 09:30:00 MIRIAM mccullough [facility] 2021-06-06 2021-06-06 [facility] [id number] [facility] 09:30:00 09:30:00 ANN MARIE herrera o f [facility] 2021-05-28 2021-05-28 Telephone [facility] [id number] Univers 00:00:00 00:00:00 Ann Marie Sheldon PROCEDURES ANALYST [id number] ity [facility] [id number] Sandip as MATERNAL [id number] Med ical & CHILD [address] [place] [address] 2020-10-24 2020-10-24 Emergency [facility] [id number] 08:52:00 10:03:00 Ray Denise [id number] [place] [id number] [place] [id number] 2020-10-24 2020-10-24 Orders Doctor CLEVE [id number] 00:00:00 00:00:00 Only Unassigned, DAKOTAH [id number] Kyle [facility] [id number] 2020-08-11 2020-08-12 Emergency [facility] [id number] 22:18:00 01:10:00 Alanna Denise [id number] [place] [id number] [place] [id number] Results Test Description Test Time Test Comments Results Result Comments Source POCT TEST 2022-01-01 21:33:00 Test Item Value Reference Range Interpretation Comme nts POCT PREG (test code = 1605) negative On board controls acceptable with C Line (test code = 3574) yes POCT PREG LOT # (test code = 3575) [id number] POCT PREG TEST DATE (test code = 3576) 03/09/2023 Lab Interpretation (test code = 24611-5) Normal [facility]
[2022-01-05] MEDS ORDERED: KETOROLAC 30 MG/ML INJ ONE ×2 (17:41→17:46)
[2022-01-05] MEDS ORDERED: MORPHINE 4 MG/ML SYR ONE ×2 (17:41→17:46)
--- NOTE | 2022-01-05 18:00 | EDPHYS ---
Physician Documentation [facility] Name: Xochitl Walters Age: 26 yrs Sex: Female : 1995 Arrival Date: 01/05/2022 Time: 16:51 Bed 25 Private MD: ED Physician Kamran Fair HPI: 01/05 17:25 This 26 yrs old Female presents to ER via Ambulatory with complaints of mouth cp pain. 17:25 The patient presents with pain. cp 17:25 The problem is located in the right lower jaw. Onset: The symptoms/episode cp began/occurred gradually, and became worse today. Duration: The symptoms are continuous. Associated signs and symptoms: Pertinent positives: swelling, facial, Pertinent negatives: fever, inability to eat. Patient reports having tooth pulled from right lower jaw 2 days ago in [place]. Patient reports she was prescribed Toradol for pain but ran out. 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 - Social history:: Smoking status: Patient denies any tobacco usage or history of. ROS: 17:30 ENT: Positive for right lower jaw pain and swelling. cp 17:30 Constitutional: Negative for body aches, chills, fever, poor PO intake. cp 17:30 Respiratory: Negative for cough, shortness of breath, wheezing. 17:30 Skin: Negative for cellulitis, rash. cp 17:30 Neuro: Negative for altered mental status, headache, weakness. 17:30 All other systems are negative. cp Exam: 17:33 Constitutional: The patient appears in no acute distress, alert, awake, non-toxic, well cp developed, well nourished, uncomfortable. 17:33 Head/face: Noted is swelling, that is mild, of the right mandible, tenderness, that is severe, of the right mandible. 17:33 Eyes: Periorbital structures: appear normal, Conjunctiva: normal, no exudate, no injection, Sclera: no appreciated abnormality, Lids and lashes: appear normal, bilaterally. 17:33 ENT: External ear(s): are unremarkable, Nose: is normal, Mouth: Lips: moist, Oral mucosa: pink and intact, moist, Posterior pharynx: Airway: no evidence of obstruction, patent, Tonsils: are normal in appearance, Uvula: midline, swelling, is not appreciated, erythema, is not appreciated, exudate, is not appreciated, Dental exam: abscess, is not appreciated, pain, that is severe, specifically in the lower right third molar (#32), lower right third tooth absent, Voice: is normal. 17:33 Neck: ROM/movement: is normal, is supple, without pain, no range of motions limitations, no nuchal rigidity. 17:33 Chest/axilla: Inspection: normal. 17:33 Cardiovascular: Rate: normal, Rhythm: regular. 17:33 Respiratory: the patient does not display signs of respiratory distress, Respirations: normal, no use of accessory muscles, no retractions, labored breathing, is not present. 17:33 Abdomen/GI: Exam negative for discomfort, distension, guarding, Inspection: abdomen appears normal. Vital Signs: 17:11 BP 120 / 88; Pulse 74; Resp 20 S; Temp 98.6(O); Pulse Ox 100% on R/A; Weight 71.67 kg aa5 (R); Height 5 ft. 4 in. (162.56 cm) (R); 17:30 BP 121 / 82; Pulse 67; Resp 20; Pulse Ox 100% on R/A; Pain 10/10; eh3 18:24 BP 108 / 85; Pulse 69; Resp 18; Pulse Ox 99% on R/A; eh3 17:11 Body Mass Index 27.12 (71.67 kg, 162.56 cm) aa5 MDM: 17:15 Patient medically screened. cp 17:30 Differential diagnosis: dental abscess, pericoronitis. cp 17:58 Data reviewed: vital signs, nurses notes. cp 17:58 Counseling: I had a detailed discussion with the patient and/or guardian regarding: the cp historical points, exam findings, and any diagnostic results supporting the discharge/admit diagnosis, the need for outpatient follow up, maxillary/facial surgeon, to return to the emergency department if symptoms worsen or persist or if there are any questions or concerns that arise at home. Response to treatment: the patient's symptoms have markedly improved after treatment, and as a result, I will discharge patient. Administered Medications: 17:27 CANCELLED (Physician Discretion): morphine 4 mg IM once cp 17:41 Drug: Ketorolac 30 mg Route: IM; Site: right deltoid; eh3 17:41 Drug: morphine 4 mg Route: IM; Site: left deltoid; eh3 Disposition Summary: 01/05/22 17:59 Discharge Ordered Location: Home cp Problem: new cp Symptoms: have improved cp Condition: Stable cp Diagnosis - Disorder of teeth and supporting structures, unspecified cp Followup: cp - With: Shay Neely DDS - When: 1 - 2 days - Reason: Worsening of condition Discharge Instructions: - Discharge Summary Sheet cp - Dental Pain cp Forms: - Medication Reconciliation Form cp - Thank You Letter cp - Antibiotic Education cp - Prescription Opioid Use cp Prescriptions: - Ibuprofen 800 mg Oral Tablet - take 1 tablet by ORAL route every 8 hours As needed take with food; 30 tablet; cp Refills: 0, Product Selection Permitted - Tylenol-Codeine #3 300 mg-30 mg Oral - take 2 tablet by ORAL route every 8-10 hours; 12 tablet; Refills: 0, Product cp Selection Permitted - Clindamycin HCl 300 mg Oral Capsule - take 1 capsule by ORAL route every 6 hours for 10 days; 40 capsule; Refills: 0, cp Product Selection Permitted Addendum: 01/07/2022 23:59 Co-signature as Attending Physician, Kamran Fair MD I was immediately available on-site r n in the Emergency Department for consultation in the care of the patient.. Signatures: Kamran Fair MD MD rn Calderon, Audri, RN RN aa5 Josué Rosa PA PA cp Hall, Erin, RN RN eh3 Corrections: (The following items were deleted from the chart) 01/05 17:27 17:27 morphine 4 mg IM once ordered. cp cp
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
[2022-01-05 19:28] VITALS: TEMP 98.6
[2022-01-05 19:40] VITALS: BP 108/85; O2SAT 99
== END 2022-01-05 18:26 | disposition home or self-care (01) ==
LOC: ER 16:50
DX: K08.89 Other specified disorders of teeth and supporting structures (principal)
CPT/HCPCS: 96372; 99283

== ENCOUNTER 2022-06-08 12:46 | Emergency (ER) | payer SELFPAY ==
--- OUTSIDE RECORDS SUMMARY | 2022-06-08 13:04 | XMS REPORT | Continuity of Care Document ---
:1995 Author Organization [facility] t Address [address] [place] [address] Care Team Providers Name Role Phone Pcp, Patient Does Not Have A Primary Care Physician [phone] HARDIK POLO Attending Clinician Unavailable Hardik Polo MD Attending Clinician Ann Marie Barreto Attending Clinician [phone] MIRIAM FAIRBANKS Attending Clinician Unavailable ANN MARIE ROTH Attending Clinician Unavailable Zohreh Velasco Attending Clinician ZOHREH GOMEZ Attending Clinician Unavailable Doctor Unassigned, [place] Attending Clinician Unavailable LOIS YATES Attending Clinician Unavailable Lois Skaggs Attending Clinician Ray East MD Attending Clinician Alanna Avendano Attending Clinician Payers Payer Name Policy Type Policy Number Effective Date Expiration Date S ource Problems Condition Condition Condition Status Onset Resolution Last Treating Co mments Source Name Details Category Date Date Treatment Clinician Date 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 Formattin ity of cell cell 00:00: g of this [place] changes of changes of 00 note Me [...] Disease Active Univers post tubal post tubal 12-25 it y of ligation ligation 00:00: [address] Allergies, Adverse Reactions, Alerts Allergy Allergy Status Severity Reaction(s) Onset Inactive Treating Comm ents Source Name Type Date Date Clinician NO KNOWN Drug Active Univers ALLERGIE Class ity of S [facility] Social History Social Habit Start Date Stop Date Quantity Comments Source Exposure to 2021-12-22 2022-01-01 Not sure [facility]-CoV-2 (event) 00:00:00 13:43:00 [facility] Alcohol intake 2022-01-01 2022-01-01 Current University of 00:00:00 00:00:00 non-drinker of [facility] alcohol [place] (finding) Cigarettes smoked 2021-05-06 2021-05-06 [facility] ity of current (pack per 00:00:00 00:00:00 [facility] ) - Reported Branch Tobacco use and 2021-05-06 2021-05-06 Smokeless Universit y of exposure 00:00:00 00:00:00 tobacco non-user [facility] History of tobacco 2016-04-09 Cigarette Smoker University of use 00:00:00 [facility] Sex Assigned At [birth year] Universit y of 00:00:00 00:00:00 [facility] Smoking Status Start Date Stop Date Source Smokes tobacco daily 2021-05-06 00:00:00 [facility] ity of [facility] Medications Ordered Filled Start Stop Current Ordering Indication Dosage Frequency Signature Comments Components Source Medication Medication Date Date Medication? Clinician (SIG) Name Name KCL No 40meq 40 mEq, Univers (KLOR-CON 01-01 Oral, ity of M20) tablet 23:45: 22:46 [place] 40 mEq 00 :00 dose, On Medical [facility] Branch 01/01/22 at 1845, Routine ketorolac No 30mg 30 mg, Unive rs (TORADOL) 8-25 08-25 Slow IV ity of injection 22:45: 22:01 Push, [place] 30 mg 00 :00 ONCE, 1 Medical dose, On Branch Rayna 01/01/22 at 1745, Routine ondansetron 2021- No 4mg 4 mg, Slow Univers (ZOFRAN 8-25 08-25 IV Push, ity of (PF)) 21:45: 22:01 ONCE, 1 [place] injection 4 00 :00 dose, On Medi nas mg Rayna Branch 01/01/22 at 1645, OPAL dicyclomine Yes [id number] 20mg Take 1 Univers 20 mg 8-25 tablet by ity of tablet 00:00: mouth [place] 00 every 6 Medical (six) Branch hours as needed for Abdominal pain. ondansetron Yes [id number] 4mg Take 1 Univers (ZOFRAN) 4 8-25 tablet by ity of mg tablet 00:00: mouth [place] 00 every 8 Medical (eight) Branch hours as needed for Nausea and Vomiting (N/V). ibuprofen Yes [id number] 800mg Take 1 U nivers 800 mg 8-25 tablet by ity of tablet 00:00: mouth [place] 00 every 8 Medical (eight) Branch hours as needed for Pain (scale 4-6) or Temp > 38.5 C. No known 2020-05 No Univers medications 2-28 ity of 14:51: [address] No known 2020-05 No Univers medications 2-28 ity of 14:51: [address] Immunizations Ordered Filled Immunization Date Status Comments [facility] Immunization Name Name HPV9 2021-05-06 Completed University of 00:00:00 [facility] HPV9 2021-05-06 Completed University of 00:00: [facility] HPV9 2021-05-06 Completed University of 00:00:00 [facility] TDAP 2016-10-06 Completed University of 00:00:00 [facility] TDAP 2016-10-06 Completed University of 00:00:00 [facility] TDAP 2016-10-06 Completed University of 00:00:00 [facility] Influenza Virus 2016-05-19 Completed Universit y of Vaccine Quad IM 3+ 00:00:[address] [facility] Influenza Virus 2016-05-19 Completed Universit y of Vaccine Quad IM 3+ 00:00:[address] [facility] Influenza Virus 2016-05-19 Completed [facility] y of Vaccine Quad IM 3+ 00:00:[address] [facility] PPD (TB) 2016-04-26 Completed [facility] 00:00:00 [facility] PPD (TB) 2016-04-26 Completed [facility] 00:00:00 [facility] PPD (TB) 2016-04-26 Completed [facility] 00:00:00 [facility] Vital Signs Vital Name Observation Time Observation Value Comments Source Systolic blood 2022-01-01 22:00:00 102 mm[Hg] Univer sity of pressure [facility] Diastolic blood 2022-01-01 22:00:00 73 mm[Hg] Unive [facility] Heart rate 2022-01-01 22:00:00 72 /min [facility] Respiratory rate 2022-01-01 22:00:00 20 /min [facility] Oxygen saturation in 2022-01-01 22:00:00 99 /min [facility] Arterial blood by [facility] Pulse oximetry [place] Body temperature 2022-01-01 18:45:00 37.22 [place] [facility] Body height 2022-01-01 18:45:00 162.6 cm [facility] Body weight 2022-01-01 18:45:00 70.806 kg [facility] BMI 2022-01-01 18:45:00 26.79 kg/m2 [facility] Procedures Procedure Date / Time Performed Performing Clinician Sour e RAPID STREP SCREEN 2022-01-01 22:06:00 Hardik Polo [facility] FOR GROUP A [facility] COMP. METABOLIC PANEL 2022-01-01 21:34:00 Hardik Polo [facility] ([id number]) [facility] CBC WITH DIFF 2022-01-01 21:34:00 Hardik Polo [facility] COVID-19 (ID NOW 2022-01-01 21:34:[address] [facility] RAPID TESTING) [facility] POCT TEST 2022-01-01 21:33:00 Hardik Polo [facility] CONSENT/REFUSAL FOR 2022-01-01 18:30:18 Doctor Unassigned, No Un [facility] DIAGNOSIS AND Name [facility] TREATMENT Encounters Start End Encounter Admission Attending Care Care Encounter Source Date/Time Date/Time Type Type Clinicians Facility Department ID 2021-03-10 Emergency [facility] [id number] Univers 01:48:[address] [facility] 2021-03-09 Emergency [facility] [id number] Univers 10:34:[address] [facility] 2022-01-01 2022-01-01 Emergency X BRANDON, [facility] ERT [id number] Univers 13:48:00 18:02:00 [facility] ity [facility] 2022-01-01 2022-01-01 Emergency [facility] [id number] Univers 13:48:00 18:02:00 Hardik Tapia [place] [id number] ity [facility] [id number] [facility] [id number] [address] 2021-07-30 2021-07-30 Telephone [facility] [id number] Univers 00:00:00 00:00:00 Ann Marie Sheldon 411 DIRECTORY ASSISTANCE OPERATOR [id number] ity General acute hospital [id number] Sandip as MATERNAL [id number] Med ical & CHILD [address] [place] [address] 2021-07-29 2021-07-29 [facility] [id number] Univers 14:30:00 14:30:00 ARSLANA maggiey o f [facility] 2021-07-07 2021-07-07 Outpatient Angelina FAIRBANKS [facility] [id number] Univers 13:30:00 13:30:00 ARSLANA javier o f [facility] 2021-06-09 2021-06-09 Outpatient Angelina FAIRBANKS [facility] [id number] Univers 09:30:00 09:30:00 ARSLANA javier o f [facility] 2021-06-06 2021-06-06 Outpatient R [facility] [id number] Univers 09:30:00 09:30:00 ity of [facility] 2021-06-06 2021-06-06 Outpatient R [facility] [id number] Univers 09:30:00 09:30:00 ity of [facility] 2021-06-06 2021-06-06 Outpatient R IRA [facility] [id number] Univers 09:30:00 09:30:00 ANN MARIE serranoy o f [facility] 2021-05-28 2021-05-28 Telephone [facility] [id number] Univers 00:00:00 00:00:00 Ann Marie Sheldon 411 DIRECTORY ASSISTANCE OPERATOR [id number] ity of REGIONAL [id number] Sandip as MATERNAL [id number] [facility] & CHILD [address] [place] [address] 2021-05-22 2021-05-22 Telephone [facility] [id number] Univers 00:00:00 00:00:00 Ann Marie Sheldon 411 DIRECTORY ASSISTANCE OPERATOR [id number] ity of [facility] [id number] Sandip as MATERNAL [id number] [facility] & CHILD [address] [place] [address] 2021-05-06 2021-05-06 Office Jason AKRIP [id number] Univers 14:00:00 15:32:01 Visit Zohreh Seo 411 DIRECTORY ASSISTANCE OPERATOR [id number] it y of [facility] [id number] Sandip as MATERNAL [id number] [facility] & CHILD [address] [place] [address] 2021-05-06 2021-05-06 [facility] [id number] Univers 14:00:00 15:32:[address] [facility] 2021-05-06 2021-05-06 [facility] [id number] Univers 14:00:00 14:00:[address] [facility] 2021-05-06 2021-05-06 Orders Doctor POON [id number] Univers 00:00:00 00:00:00 Only Unassigned, DAKOTAH [id number] ity of [place] [facility] [id number] Sandip [id number] [facility] 009 Branch 2021-04-23 2021-04-23 Emergency X [facility] ERT [id number] Univers 22:19:00 23:45:00 LOIS ittee of [facility] 2021-04-23 2021-04-23 Emergency [facility] [id number] Univers 22:19:00 23:45:00 Lois Alfaro ROSALIO [id number] i ty of [place] [id number] [facility] [id number] [facility] 084 Branch 2020-10-24 2020-10-24 Emergency [facility] [id number] 08:52:00 10:03:00 Ray Denise [id number] [place] [id number] [place] [id number] 2020-10-24 2020-10-24 Orders Doctor CLEVE [id number] 00:00:00 00:00:00 Only Unassigned, DAKOTAH [id number] [place] [facility] [id number] 2020-08-11 2020-08-12 Emergency [facility] [id number] 22:18:00 01:10:00 Alanna Denise [id number] [place] [id number] [place] [id number] Results Test Description Test Time Test Comments Results Result Comments Source POCT TEST 2022-01-01 21:33:00 Test Item Value Reference Range Interpretation Comme nts POCT PREG (test code = 1605) negative On board controls acceptable with C Line (test code = 3574) yes POCT PREG LOT # (test code = 3575) [id number] POCT PREG TEST DATE (test code = 3576) 03/09/2023 Lab Interpretation (test code = 76483-7) Normal [facility]
--- NOTE | 2022-06-08 13:51 | RAD REPORT ---
EXAM DESCRIPTION: RAD - Wrist Right 3 View - 06/08/2022 1:25 pm CLINICAL HISTORY: Right wrist pain FINDINGS: No fracture or dislocation is seen. If the patient continues to have symptoms to suggest an occult fracture then a followup plain film se feli in 7 days would be recommended.
--- NOTE | 2022-06-08 13:52 | RAD REPORT ---
EXAM DESCRIPTION: RAD - Forearm Left - 06/08/2022 1:25 pm CLINICAL HISTORY: Left forearm pain FINDINGS: No fracture is seen
--- NOTE | 2022-06-08 14:32 | RAD REPORT ---
EXAM DESCRIPTION: US - UPPER EXTREMITY VENOUS UNILATE - 06/08/2022 2:03 pm CLINICAL HISTORY: left arm swelling. COMPARISON: None. FINDINGS: Left internal jugular vein, left subclavian vein, left axillary vein, left brachial vein, left cephalic, left basilic, left ulnar and left radial veins demonstrate phasic signal. The veins are compressible. Doppler demonstrates good flow. IMPRESSION: No sonographic evidence of thrombus involving the left upper extremity veins.
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
[2022-06-08] MEDS ORDERED: IBUPROFEN 200 MG TAB PO ONE (14:54)
[2022-06-08 15:05] VITALS: BP 104/68; TEMP 97.8; O2SAT 100
== END 2022-06-08 14:55 | disposition home or self-care (01) ==
LOC: ER 12:46
DX: S50.12XA Contusion of left forearm, initial encounter (principal); S60.211A Contusion of right wrist, initial encounter; F17.210 Nicotine dependence, cigarettes, uncomplicated
CPT/HCPCS: 93971; 99283

== ENCOUNTER 2022-09-05 10:13 | Emergency (ER) | payer SELFPAY ==
--- OUTSIDE RECORDS SUMMARY | 2022-09-05 10:16 | XMS REPORT | Continuity of Care Document ---
:1995 Author Organization [facility] t Address [address] [place] [address] Care Team Providers Name Role Phone Pcp, Patient Does Not Have A Primary Care Physician [id number] HARDIK POLO Attending Clinician Unavailable Hardik Polo MD Attending Clinician Ann Marie Barreto Attending Clinician [phone] MIRIAM FAIRBANKS Attending Clinician Unavailable ANN MARIE ROTH Attending Clinician Unavailable Zohreh Velasco Attending Clinician ZOHREH GOMEZ Attending Clinician Unavailable Doctor Unassigned, [place] Attending Clinician Unavailable LOIS YATES Attending Clinician [...] of cell cell 00:00: g of this [place] changes of changes of 00 note Me dical undetermin undetermin might be Branch ed ed different significan significan from the ce (ASCUS) ce (ASCUS) original. on on need cervical cervical repeat cytology cytology pap in 3 with with years negative negative 05/2024 high risk high risk human human papilloma papilloma virus virus (HPV) test (HPV) test result result Status Status Disease Active [facility] post tubal post tubal 12-25 it y of ligation ligation 00:00: [address] Allergies, Adverse Reactions, Alerts Allergy Allergy Status Severity Reaction(s) Onset Inactive Treating Comm ents Source Name Type Date Date Clinician NO KNOWN Drug Active Univers ALLERGIE Class ity of S [facility] Social History Social Habit Start Date Stop Date Quantity Comments Source Exposure to 2021-12-22 2022-01-01 Not sure [facility]-CoV-2 (event) 00:00:00 13:43:00 [facility] Alcohol intake 2022-01-01 2022-01-01 Current University of 00:00:00 00:00:00 non-drinker of [facility] alcohol Branch (finding) Cigarettes smoked 2021-05-06 2021-05-06 Univers ity of current (pack per 00:00:00 00:00:00 [facility] ) - Reported Branch Tobacco use and 2021-05-06 2021-05-06 Smokeless Universit y of exposure 00:00:00 00:00:00 tobacco [facility] of tobacco 2016-04-09 Cigarette Smoker University of use 00:00:00 [facility] Sex Ass[birth year] At [birth year] Universit y of 00:00:00 00:00:00 [facility] Smoking Status Start Date Stop Date Source Smokes tobacco daily 2021-05-06 00:00:00 Univers ity of [facility] Medications Ordered Filled Start Stop Current Ordering Indication Dosage Frequency Signature Comments Components Source Medication Medication Date Date Medication? Clinician (SIG) Name Name KCL 2021- No 40meq 40 mEq, Univers (KLOR-CON 01-01 Oral, ity of M20) tablet 23:45: 22:46 [place]CE[place] mEq 00 :00 dose, On Medical [facility] Branch 01/01/22 at 1845, Routine ketorolac [...] Branch 01/01/22 at 1645, OPAL dicyclomine Yes [id number] 20mg Take 1 Univers 20 mg 8-25 tablet by ity of tablet 00:00: mouth 00 every 6 Medical (six) Branch hours as needed for Abdominal pain. ondansetron Yes [id number] 4mg Take 1 Univers (ZOFRAN) 4 8-25 tablet by ity of mg tablet 00:00: mouth [place] 00 every 8 Medical (eight) Branch hours as needed for Nausea and Vomiting (N/V). ibuprofen Yes [id number] 800mg Take 1 U nivers 800 mg 8-25 tablet by ity of tablet 00:00: mouth [place] 00 every 8 Medical (eight) Branch hours as needed for Pain (scale 4-6) or Temp > 38.5 C. No known 2020-05 No Univers medications 2-28 ity of 14:51: [address] No known 2020-05 No Univers medications 2-28 ity of 14:51: [address] Immunizations Ordered Filled Immunization Date Status Comments [facility] e Immunization Name Name HPV9 2021-05-06 Completed University of :00: [facility] HPV9 2021-05-06 Completed University of :00:00 [facility] HPV9 2021-05-06 Completed University of 00:00:00 [facility] TDAP 2016-10-06 Completed University of 00:00: [facility] TDAP 2016-10-06 Completed University of 00:00: [facility] TDAP 2016-10-06 Completed University of 00:00:00 [facility] Influenza Virus 2016-05-19 Completed Universit y of Vaccine Quad IM 3+ 00:00:00 [facility] Influenza Virus 2016-05-19 Completed Universit y of Vaccine Quad IM 3+ 00:00:00 [facility] Influenza Virus 2016-05-19 Completed [facility] y of Vaccine Quad IM 3+ 00:00:00 [facility] PPD (TB) 2016-04-26 Completed [facility] 00:00:00 [facility] PPD (TB) 2016-04-26 Completed University 00:00:00 [facility] PPD (TB) 2016-04-26 Completed [facility] 00:00:00 [facility] Vital Signs Vital Name Observation Time Observation Value Comments Source Systolic blood 2022-01-01 22:00:00 102 mm[Hg] Univer sity of pressure [facility] Diastolic blood 2022-01-01 22:00:00 73 mm[Hg] [facility] Heart rate 2022-01-01 22:00:00 72 /min [facility] Respiratory rate 2022-01-01 22:00:00 20 /min [facility] Oxygen saturation in 2022-01-01 22:00:00 99 /min [facility] Arterial blood by [facility] Pulse oximetry Branch Body temperature 2022-01-01 18:45:00 37.22 Ashley [facility] Body height 2022-01-01 18:45:00 162.6 cm [facility] Body weight 2022-01-01 18:45:00 70.806 kg [facility] BMI 2022-01-01 18:45:00 26.79 kg/m2 [facility] Procedures Procedure Date / Time Performed Performing Clinician Sour e RAPID STREP SCREEN 2022-01-01 22:06:00 Hardik Polo [facility] FOR GROUP A [facility] Branch COMP. METABOLIC PANEL 2022-01-01 21:34:00 Hardik Polo [facility] ([id number]) [facility] CBC WITH DIFF 2022-01-01 21:34:00 Hardik Polo [facility] COVID-19 (ID NOW 2022-01-01 21:34:00 Hardik Polo [facility] RAPID TESTING) [facility] POCT TEST 2022-01-01 21:33:[address] [facility] CONSENT/REFUSAL FOR 2022-01-01 18:30:18 Doctor Unassigned, No Un [facility] DIAGNOSIS AND Name [facility] TREATMENT Encounters Start End Encounter Admission Attending Care Care Encounter Source Date/Time Date/Time Type Type Clinicians Facility Department ID 2021-03-10 Emergency [facility] [id number] Univers 01:48:10 ity of [facility] 2021-03-09 Emergency [facility] [id number] Univers 10:34:44 ity of [facility] 2022-01-01 2022-01-01 Emergency X BRANDON, [facility] ERT [id number] Univers 13:48:00 18:02:00 [facility] ity 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 [id number] ity [facility] [id number] Sandip as MATERNAL [id number] Med ical & CHILD [address] [place] [address] 2021-07-29 2021-07-29 [facility] [id number] Univers 14:30:00 14:30:00 ARSLANA maggiey o f [facility] 2021-07-07 2021-07-07 Outpatient Angelina FAIRBANKS [facility] [id number] Univers 13:30:00 13:30:00 ARSLANA javier o f [facility] 2021-06-09 2021-06-09 Outpatient Angelina FAIRBANKS [facility] [id number] Univers 09:30:00 09:30:00 ARSLANA javier o f [facility] 2021-06-06 2021-06-06 Outpatient R [facility] [id number] Univers 09:30:00 09:30:00 ity of [facility] 2021-06-06 2021-06-06 Outpatient R [facility] [id number] Univers 09:30:00 09:30:00 ity of [facility] 2021-06-06 2021-06-06 Outpatient R IRA [facility] [id number] Univers 09:30:00 09:30:00 ANN MARIE serranoy o f [facility] 2021-05-28 2021-05-28 Telephone [facility] [id number] Univers 00:00:00 00:00:00 Ann Marie Sheldon DISASTER RECOVERY MANAGER [id number] ity of REGIONAL [id number] Sandip as MATERNAL [id number] [facility] & CHILD [address] [place] [address] 2021-05-22 2021-05-22 Telephone [facility] [id number] Univers 00:00:00 00:00:00 Ann Marie Sheldon DISASTER RECOVERY MANAGER [id number] ity of REGIONAL [id number] Sandip as MATERNAL [phone] [facility] & [address] 2021-05-06 2021-05-06 Jamin Gomez RIRIP [id number] Univers 14:00:00 15:32:01 Visit Zohreh Seo DISASTER RECOVERY MANAGER [id number] it y of REGIONAL [id number] Sandip as MATERNAL [id number] [facility] & CHILD [address] [place] [address] 2021-05-06 2021-05-06 Outpatient R JASON [facility] [id number] Univers 14:00:00 15:32:01 ZOHREH herrera [facility] 2021-05-06 2021-05-06 [facility] [id number] Univers 14:00:00 14:00:00 ZOHREH herrera [facility] 2021-05-06 2021-05-06 Orders Doctor POON [id number] Univers 00:00:00 00:00:00 Only Unassigned, DAKOTAH [id number] ity of [facility] [id number] Sandip as [id number] [facility] 009 Branch 2021-04-23 2021-04-23 Emergency X [facility] ERT [id number] Univers 22:19:00 23:45:00 LOIS ity of [facility] 2021-04-23 2021-04-23 Emergency [facility] [id number] Univers 22:19:00 23:45:00 Lois SANTAMARIA [id number] i ty of [id number] [id number] [facility] 084 Branch 2020-10-24 2020-10-24 Emergency [facility] [id number] 08:52:00 10:03:00 Ray Santamaria [id number] [place] [id number] Ryan [id number] 2020-10-24 2020-10-24 Orders Doctor CLEVE [id number] 00:00:00 00:00:00 Only Unassigned, DAKOTAH [id number] [place] [facility] [id number] [id number] 2020-08-11 2020-08-[address] [facility] [id number] 22:18:00 01:10:00 Alanna Santamaria [id number] [place] [id number] Ryan [id number] Results Test Description Test Time Test Comments Results Result Comments Source POCT TEST 2022-01-01 21:33:00 Test Item Value Reference Range Interpretation Comme nts POCT PREG (test code = 1605) negative On board controls acceptable with C Line (test code = 3574) yes POCT PREG LOT # (test code = 3575) [id number] POCT PREG TEST DATE (test code = 3576) 03/09/2023 Lab Interpretation (test code = 70959-5) Normal [facility]
[2022-09-05 11:16] LABS: SARS-CoV-2 Antigen Rapid Res Negative (Negative)
[2022-09-05 11:19] LABS: Specific Gravity 1.027 (1.005-1.030); Urine Bacteria None Seen /HPF (<20); Urine Bilirubin NEGATIVE (Negative); Urine Blood 3+ (Negative); Urine Clarity Clear (Clear); Urine Color Yellow (Yellow); Urine Glucose NEGATIVE (Negative); Urine Mucus 1+ /HPF (None Seen); Urine Protein TRACE (Negative); Urine RBC 21-50 /HPF (None Seen); Urine Urobilinogen Normal (Normal)
[2022-09-05] MEDS ORDERED: PROMETHAZINE INJ 25 MG/ML AMP ONE (11:28)
[2022-09-05] MEDS ORDERED: NA CHLORIDE 0.9% 1,000 ML ONE (11:28)
[2022-09-05] MEDS ORDERED: NA CHLORIDE 0.9% 250 ML ONE (11:28)
--- NOTE | 2022-09-05 12:26 | EDPHYS ---
Physician Documentation [facility] Name: Xochitl Walters Age: 27 yrs Sex: Female : 1995 Arrival Date: 09/05/2022 Time: 10:13 Bed 13 Private MD: ED Physician Myles Gupta HPI: 09/05 10:26 This 27 yrs old Female presents to ER via Ambulatory with complaints of snw Vomiting, Dehydration. 10:26 The patient presents to the emergency department with nausea, vomiting. Onset: The snw symptoms/episode began/occurred acutely, and became persistent. Associated signs and symptoms: Pertinent positives: nausea, vomiting. Severity of symptoms: At their worst the symptoms were moderate. The patient has not experienced similar symptoms in the past, but family has similar symptoms, Children with strep. The patient has not recently seen a physician. 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 - Social history:: Smoking status: unknown. ROS: 10:26 Constitutional: Negative for fever, chills, and weight loss. snw 10:26 Eyes: Negative for injury, pain, redness, and discharge, ENT: Negative for injury, pain, and discharge, Neck: Negative for injury, pain, and swelling, Cardiovascular: Negative for chest pain, palpitations, and edema, Respiratory: Negative for shortness of breath, cough, wheezing, and pleuritic chest pain. 10:26 Back: Negative for injury and pain, : Negative for injury, bleeding, discharge, and swelling. 10:26 Skin: Negative for injury, rash, and discoloration, Psych: Negative for depression, anxiety, suicide ideation, homicidal ideation, and hallucinations. 10:26 Constitutional: Positive for body aches, chills, fatigue, malaise, poor PO intake. 10:26 Abdomen/GI: Positive for nausea and vomiting. 10:26 MS/extremity: Positive for bodyaches. 10:26 Neuro: Positive for headache. Exam: 10:24 Constitutional: This is a well developed, well nourished patient who is awake, alert, snw and in no acute distress. Head/Face: Normocephalic, atraumatic. Eyes: Pupils equal round and reactive to light, extra-ocular motions intact. Lids and lashes normal. Conjunctiva and sclera are non-icteric and not injected. Cornea within normal limits. Periorbital areas with no swelling, redness, or edema. ENT: Nares patent. No nasal discharge, no septal abnormalities noted. Tympanic membranes are normal and external auditory canals are clear. Oropharynx with no redness, swelling, or masses, exudates, or evidence of obstruction, uvula midline. Mucous membranes moist. Neck: Trachea midline, no thyromegaly or masses palpated, and no cervical lymphadenopathy. Supple, full range of motion without nuchal rigidity, or vertebral point tenderness. No Meningismus. Chest/axilla: Normal chest wall appearance and motion. Nontender with no deformity. No lesions are appreciated. Cardiovascular: Regular rate and rhythm with a normal S1 and S2. No gallops, murmurs, or rubs. Normal PMI, no JVD. No pulse deficits. Respiratory: Lungs have equal breath sounds bilaterally, clear to auscultation and percussion. No rales, rhonchi or wheezes noted. No increased work of breathing, no retractions or nasal flaring. Abdomen/GI: Soft, non-tender, with normal bowel sounds. No distension or tympany. No guarding or rebound. No evidence of tenderness throughout. Back: No spinal tenderness. No costovertebral tenderness. Full range of motion. Skin: Warm, dry with normal turgor. Normal color with no rashes, no lesions, and no evidence of cellulitis. MS/ Extremity: Pulses equal, no cyanosis. Neurovascular intact. Full, normal range of motion. Neuro: Awake and alert, GCS 15, oriented to person, place, time, and situation. Cranial nerves II-XII grossly intact. Motor strength 5/5 in all extremities. Sensory grossly intact. Cerebellar exam normal. Normal gait. Psych: Awake, alert, with orientation to person, place and time. Behavior, mood, and affect are within normal limits. Tearful Vital Signs: 10:18 BP 125 / 90; Pulse 75; Resp 16; Pulse Ox 99% on R/A; Weight 74.84 kg; Height 5 ft. 3 hb in. ; Pain 7/10; 11:19 BP 104 / 69; Pulse 66; Resp 18 S; Pulse Ox 99% on R/A; kc6 12:13 BP 97 / 72; Pulse 59; Resp 17; Pulse Ox 100% on R/A; kr3 13:35 BP 91 / 59; Pulse 68; Resp 18; Temp 98.2(O); Pulse Ox 99% on R/A; kr3 10:18 Body Mass Index 29.23 (74.84 kg, 160.02 cm) hb 10:18 Pain Scale: Adult hb MDM: 10:24 Patient medically screened. snw 12:01 Differential diagnosis: gastritis, viral gastroenteritis, gastroenteritis, viral snw infection. Data reviewed: vital signs, nurses notes, lab test result(s). I considered the following discharge prescriptions or medication management in the emergency department Medications were administered in the Emergency Department. See MAR. Counseling: I had a detailed discussion with the patient and/or guardian regarding: the historical points, exam findings, and any diagnostic results supporting the discharge/admit diagnosis, lab results, the need for outpatient follow up, to return to the emergency department if symptoms worsen or persist or if there are any questions or concerns that arise at home. Awaiting: ivf completion. Special discussion: Based on the history and exam findings, there is no indication for further emergent testing or inpatient evaluation. I discussed with the patient/guardian the need to see the primary care provider for further evaluation of the symptoms. ED course: pt states she is feeling better, no complaints, awaiting ivf completion for discharge home. 09/05 10:20 Order name: Strep hb 09/05 10:20 Order name: Flu; Complete Time: 11:37 hb 09/05 10:20 Order name: SARS RAPID; Complete Time: 11:22 hb 09/05 10:24 Order name: Urine W/Microscopic (UAM); Complete Time: 11:22 snw 09/05 11:19 Order name: Throat Culture EDMS 09/05 11:06 Order name: Misc. Order: Draw Blood culture and CBC, CMP on IV start and hold at snw bedside; Complete Time: 11:18 Administered Medications: 11:34 Drug: Promethazine IVP 25 mg {Note: injected into 250mL NS per provider order.} Route: kr3 IVP; Site: right antecubital; 13:39 Follow up: Response: No adverse reaction kr3 11:34 Drug: NS 0.9% IV 1000 ml Route: IV; Rate: 1 bolus; Site: right antecubital; kr3 13:38 Follow up: Response: No adverse reaction; IV Status: Completed infusion; IV Intake: kr3 1000ml 11:34 Drug: NS 0.9% IV 250 ml Route: IV; Rate: bolus; Site: right antecubital; kr3 13:38 Follow up: Response: No adverse reaction; IV Status: Completed infusion; IV Intake: kr3 250ml Disposition: 10:24 Co-signature as Attending Physician, Myles OSUNA/SUPERVISOR BROADLOOM's history reviewed, patient ms3 interviewed, and examined. HPI: 27-year-old female with no past medical history presents for 1 week of nausea, vomiting, body aches. Patient states she is having 7/10 body aches. Patient denies alleviating or inciting factors. Patient notes her kids have strep. My personal exam of patient reveals: On exam patient is alert and oriented x4, no apparent distress, nontoxic-appearing. Heart rate and rhythm are regular without murmurs rubs or gallops. Lungs are clear to auscultation bilaterally. Abdomen is nontender to palpation with bowel sounds present in all quadrants. Skin is dry and without rashes. Discussed case with Nicci Diggs nurse jakobitioner, and agree with her plan. 13:10 Co-signature as Attending Physician, Myles OSUNA/SUPERVISOR BROADLOOM's history reviewed, patient ms3 interviewed, and examined. I agree with assessment and care plan and confirm the diagnosis (es) above. Disposition Summary: 09/05/22 12:26 Discharge Ordered Location: Home snw Condition: Stable snw Diagnosis - Nausea with vomiting, unspecified snw - Volume depletion, unspecified snw Followup: snw - With: Emergency Department - When: As needed - Reason: Worsening of condition Followup: snw - With: Private Physician - When: 2 - 3 days - Reason: Recheck today's complaints, Continuance of care, Re-evaluation by your physician Discharge Instructions: - Discharge Summary Sheet snw - Dehydration, Adult snw - Nausea and Vomiting, Adult, [id number] snw - Rehydration, Adult snw Forms: - Work release form snw - Medication Reconciliation Form snw - Thank You Letter snw - Antibiotic Education snw - Prescription Opioid Use snw Prescriptions: - promethazine 25 mg Oral Tablet - take 1 tablet by ORAL route every 6 hours As needed; 20 tablet; Refills: 0, snw Product Selection Permitted Signatures: Dispatcher [employer] EDMS Nicci Diggs, BUCKLE ATTACHER-C BUCKLE ATTACHER-Csnw Barbara Dos Santos RN RN Myles Gupta, DO ms3 Aida Barry RN RN kr3
--- NOTE | 2022-09-05 12:26 | ER ---
Nurse's Notes [facility] Name: Xochitl Walters Age: 27 yrs Sex: Female : 1995 Arrival Date: 09/05/2022 Time: 10:13 Bed 13 Private MD: Diagnosis: Nausea with vomiting, unspecified;Volume depletion, unspecified Presentation: 09/05 10:17 Chief complaint: Body aches, headache, and N/V x 1 week. Not tolerating fluids. hb Coronavirus screen: Client presents with at least one sign or symptom that may indicate coronavirus-19. Provider contacted for isolation considerations. Ebola Screen: No symptoms or risks identified at this time. Onset of symptoms was August 29, 2022. 10:17 Method Of Arrival: Ambulatory hb 10:18 Initial Sepsis Screen: Does the patient meet any 2 criteria? No. Patient's initial hb sepsis screen is negative. Does the patient have a suspected source of infection? No. Patient's initial sepsis screen is negative. Risk Assessment: Do you want to hurt yourself or someone else? Patient reports no desire to harm self or others. 10:18 Acuity: ANGELY 3 hb Triage Assessment: 13:38 GI: Reports nausea, vomiting. 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 - Social history:: Smoking status: unknown. Screenin:[address] [facility] ED Fall Risk Assessment (Adult) History of falling in the last 3 months, kr3 including since admission No falls in past 3 months (0 pts) Confusion or Disorientation No (0 pts) Intoxicated or Sedated No (0 pts) Impaired Gait No (0 pts) Mobility Assist Device Used No (0 pt) Altered Elimination No (0 pt) Score/Fall Risk Level 0 - 2 = Low Risk Oriented to surroundings, Maintained a safe environment, Educated pt \T\ family on fall prevention, incl call for assistance when getting out of bed, Assessed \T\ reinforced patient's understanding of fall precautions, Hourly rounding (assess needs \T\ fall precautionary measures) done. Abuse screen: Denies threats or abuse. Nutritional screening: No deficits noted. Tuberculosis screening: No symptoms or risk factors identified. Assessment: 10:20 General: Appears in no apparent distress. uncomfortable, Behavior is calm, cooperative, kr3 appropriate for age. Pain: Complains of pain in abdomen. Neuro: Level of Consciousness is awake, alert, obeys commands, Oriented to person, place, time, situation. Cardiovascular: Patient's skin is warm and dry. Respiratory: Airway is patent Respiratory effort is even, unlabored, Respiratory pattern is regular, symmetrical. GI: Abdomen is flat, non-distended. : No signs and/or symptoms were reported regarding the genitourinary system. EENT: No signs and/or symptoms were reported regarding the EENT system. Derm: No signs and/or symptoms reported regarding the dermatologic system. Musculoskeletal: No signs and/or symptoms reported regarding the musculoskeletal system. 11:05 Reassessment: Patient appears in no apparent distress at this time. Patient and/or kr3 family updated on plan of care and expected duration. Pain level reassessed. Patient is alert, oriented x 3, equal unlabored respirations, skin warm/dry/pink. patient vomiting. 12:14 Reassessment: Patient appears in no apparent distress at this time. Patient and/or kr3 family updated on plan of care and expected duration. Pain level reassessed. Patient is alert, oriented x 3, equal unlabored respirations, skin warm/dry/pink. patient resting. 12:30 Reassessment: patient will be discharged once fluid infusion is complete. kr3 13:35 Reassessment: Patient appears in no apparent distress at this time. Patient and/or kr3 family updated on plan of care and expected duration. Pain level reassessed. Patient is alert, oriented x 3, equal unlabored respirations, skin warm/dry/pink. Vital Signs: 10:18 BP 125 / 90; Pulse 75; Resp 16; Pulse Ox 99% on R/A; Weight 74.84 kg; Height 5 ft. 3 hb in. ; Pain 7/10; 11:19 BP 104 / 69; Pulse 66; Resp 18 S; Pulse Ox 99% on R/A; kc6 12:13 BP 97 / 72; Pulse 59; Resp 17; Pulse Ox 100% on R/A; kr3 13:35 BP 91 / 59; Pulse 68; Resp 18; Temp 98.2(O); Pulse Ox 99% on R/A; kr3 10:18 Body Mass Index 29.23 (74.84 kg, 160.02 cm) hb 10:18 Pain Scale: Adult hb ED Course: 10:15 Patient arrived in ED. mr 10:16 Nicci Diggs, BONSAI TENDER-C is PHCP. snw 10:16 Myles Gupta DO is Attending Physician. snw 10:18 Arm band placed on. hb 10:20 Triage completed. hb 10:21 Aida Barry, KEO is Primary Nurse. kr3 10:25 SARS RAPID Sent. hb 10:25 Flu Sent. hb 10:52 Urine W/Microscopic (UAM) Sent. mm9 10:52 Urine collected: clean catch specimen, cloudy, COVID swab sent to lab. Flu and/or RSV mm9 swab sent to lab. 10:53 Patient has correct armband on for positive identification. Bed in low position. Call mm9 light in reach. Pulse ox on. NIBP on. 10:53 Strep swab sent to lab. mm9 11:26 Throat Culture Sent. mm9 11:26 Flu Sent. mm9 11:26 Strep Sent. mm9 11:27 Inserted saline lock: 22 gauge in right antecubital area, using aseptic technique. mm9 Blood collected. 13:37 No provider procedures requiring assistance completed. IV discontinued, intact, kr3 bleeding controlled, No redness/swelling at site. Pressure dressing applied. Administered Medications: 11:34 Drug: Promethazine IVP 25 mg {Note: injected into 250mL NS per provider order.} Route: kr3 IVP; Site: right antecubital; 13:39 Follow up: Response: No adverse reaction kr3 11:34 Drug: NS 0.9% IV 1000 ml Route: IV; Rate: 1 bolus; Site: right antecubital; kr3 13:38 Follow up: Response: No adverse reaction; IV Status: Completed infusion; IV Intake: kr3 1000ml 11:34 Drug: NS 0.9% IV 250 ml Route: IV; Rate: bolus; Site: right antecubital; kr3 13:38 Follow up: Response: No adverse reaction; IV Status: Completed infusion; IV Intake: kr3 250ml Medication: 13:38 VIS not applicable for this client. kr3 Intake: 13:38 IV: 250ml; Total: 250ml. kr3 13:38 IV: 1000ml; Total: 1250ml. kr3 Outcome: 12:26 Discharge ordered by . [facility] 13:37 Discharged to home ambulatory. kr3 13:37 Condition: stable 13:37 Discharge instructions given to patient, Instructed on discharge instructions, follow up and referral plans. medication usage, Demonstrated understanding of instructions, follow-up care, medications, Prescriptions given X 1. 13:40 Patient left the ED. kr3 Signatures: Nicci Diggs, BONSAI TENDER-C BONSAI TENDER-Csnw Kandi Odell Heather, RN RN Aida Ahn, RN RN kr3 Jyoti Alberts RN RN kc6 Olga Avendano mm9
[2022-09-05 14:09] VITALS: BP 91/59; TEMP 98.2; O2SAT 99
== END 2022-09-05 13:40 | disposition home or self-care (01) ==
LOC: ER 10:13
DX: E86.9 Volume depletion, unspecified (principal); Z20.822 Contact with and (suspected) exposure to COVID-19
CPT/HCPCS: 36415; 81001; 87070; 87081; 87804; 87811; 96365; 96366; 96375; 99284; J2550; J7030; J7050

== ENCOUNTER 2023-03-26 14:58 | Emergency (ER) | payer SELFPAY ==
--- OUTSIDE RECORDS SUMMARY | 2023-03-26 15:00 | XMS REPORT | Continuity of Care Document ---
:1995 Author Organization [facility] t Address [address] [place] [address] Care Team Providers Name Role Phone PCP, PATIENT DOES NOT HAVE A Primary Care Physician Unavaila ANN MARIE Young Attending Clinician Unavailable HARDIK POLO Attending Clinician Unavailable Hardik Polo MD Attending Clinician lAly Ann Marie HERNANDEZ Attending Clinician [phone] MIRIAM FAIRBANKS Attending Clinician Unavailable Zohreh Velasco Attending Clinician ZOHREH GOMEZ Attending Clinician Unavailable Doctor Unassigned, [place] Attending Clinician Unavailable LOIS YATES Attending Clinician [...] of cell cell 00:00: g of this [place] changes of changes of 00 note Me [...] 12-25 it y of ligation ligation 00:00: [address] Allergies, Adverse Reactions, Alerts Allergy Allergy Status Severity Reaction(s) Onset Inactive Treating Comm ents Source Name Type Date Date Clinician NO KNOWN Drug Active Univers ALLERGIE Class ity of S [facility] Social History Social Habit Start Date Stop Date Quantity Comments Source Exposure to 2021-12-22 2022-01-01 Not sure [facility]-CoV-2 (event) 00:00:00 13:43:00 [facility] Alcohol intake 2022-01-01 2022-01-01 Current University of 00:00:00 00:00:00 non-drinker of [facility] alcohol Branch (finding) Cigarettes smoked 2021-05-06 2021-05-06 Univers ity of current (pack per 00:00:00 00:00:00 [facility] ) - Reported Branch Tobacco use and 2021-05-06 2021-05-06 Smokeless Universit y of exposure 00:00:00 00:00:00 tobacco non-user [facility] History of tobacco 2016-04-09 Cigarette Smoker University of use 00:00:00 [facility] Sex Ass[birth year] At [birth year] Universit y of 00:00:00 00:00:00 [facility] Smoking Status Start Date Stop Date Source Smokes tobacco daily 2021-05-06 00:00:00 Univers ity of [facility] Medications Ordered Filled Start Stop Current Ordering Indication Dosage Frequency Signature Comments Components Source Medication Medication Date Date Medication? Clinician (SIG) Name Name KCL 2021- No 40meq 40 mEq, Univers (KLOR-CON 01-01 Oral, ity of M20) tablet 23:45: 22:46 [place] 1 [place] 40 mEq 00 :00 dose, On Medical [facility] Branch 01/01/22 at 1845, Routine ketorolac No 30mg 30 mg, Unive rs (TORADOL) 8-25 08-25 Slow IV ity of injection 22:45: 22:01 Push, [place] 30 mg 00 :00 ONCE, 1 Medical dose, On Branch Rayna 01/01/22 at 1745, Routine ondansetron No 4mg 4 mg, Slow Univers (ZOFRAN 01-01 IV Push, ity of (PF)) 21:45: 22:01 ONCE, 1 [place] injection 4 00 :00 dose, On Medi nas mg Rayna Branch 01/01/22 at 1645, OPAL ibuprofen Yes [id number] 800mg Take 1 U nivers 800 mg 8-25 tablet by ity of tablet 00:00: mouth 00 every 8 Medical (eight) Branch hours as needed for Pain (scale 4-6) or Temp > 38.5 C. dicyclomine Yes [id number] 20mg Take 1 Univers 20 mg 8-25 tablet by ity of tablet 00:00: mouth 00 every 6 Medical (six) Branch hours as needed for Abdominal pain. ondansetron Yes [id number] 4mg Take 1 Univers (ZOFRAN) 4 8-25 tablet by ity of mg tablet 00:00: mouth [place] 00 every 8 Medical (eight) Branch hours as needed for Nausea and Vomiting (N/V). No known 2020-05 No Univers medications 2-28 ity of 14:51: [address] No known 2020-05 No Univers medications 2-28 ity of 14:51: [address] Vital Signs Vital Name Observation Time Observation Value Comments Source Systolic blood 2022-01-01 22:00:00 102 mm[Hg] Univer sity of pressure [facility] Diastolic blood 2022-01-01 22:00:00 73 mm[Hg] [facility] Heart rate 2022-01-01 22:00:00 72 /[facility] Respiratory rate 2022-01-01 22:00:00 20 /min [facility] Oxygen saturation in 2022-01-01 22:00:00 99 /min [facility] Arterial blood by [place] Medi nas Pulse oximetry Branch Body temperature 2022-01-01 18:45:00 37.22 Ashley [facility] Body height 2022-01-01 18:45:00 162.6 cm [facility] Body weight 2022-01-01 18:45:00 70.806 kg [facility] BMI 2022-01-01 18:45:00 26.79 kg/m2 [facility] Procedures Procedure Date / Time Performed Performing Clinician Sourc e RAPID STREP SCREEN 2022-01-01 22:06:00 Hardik Polo [facility] FOR GROUP A [facility] Branch COMP. METABOLIC PANEL 2022-01-01 21:34:00 Hardik Polo [facility] ([id number]) [facility] CBC WITH DIFF 2022-01-01 21:34:00 Hardik Polo [facility] COVID-19 (ID NOW 2022-01-01 21:34:00 Hardik Polo [facility] RAPID TESTING) [facility] POCT TEST 2022-01-01 21:33:00 Hardik Polo [facility] CONSENT/REFUSAL FOR 2022-01-01 18:30:18 Doctor Unassigned, No Un [facility] DIAGNOSIS AND Name [facility] TREATMENT Encounters Start End Encounter Admission Attending Care Care Encounter Source Date/Time Date/Time Type Type Clinicians Facility Department ID 2021-03-10 Emergency [facility] [id number] Univers 01:48:[address] [facility] 2021-03-09 Emergency [facility] [id number] Univers 10:34:[address] [facility] 2022-01-01 2022-01-01 Emergency X [facility] ERT [id number] Univers 13:48:00 18:02:[address] 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 [id number] ity of REGIONAL [id number] Sandip as MATERNAL [id number] Med ical & CHILD 107 [facility] 2021-07-29 2021-07-29 Outpatient R TIKI [facility] [id number] Univers 14:30:00 14:30:00 MIRIAM herrera o [facility] 2021-07-07 2021-07-07 Outpatient R TIKI [facility] [id number] Univers 13:30:00 13:30:00 [facility] 2021-06-09 2021-06-09 Outpatient R TIKI [facility] [id number] Univers 09:30:00 09:30:00 [facility] 2021-06-06 2021-06-06 Outpatient R [facility] [id number] Univers 09:30:00 09:30:00 ity [facility] 2021-06-06 2021-06-06 Outpatient R [facility] [id number] Univers 09:30:00 09:30:00 ity [facility] 2021-06-06 2021-06-06 [facility] [id number] Univers 09:30:00 09:30:00 ANN MARIE javier o [facility] 2021-05-28 2021-05-28 Telephone [facility] [id number] Univers 00:00:00 00:00:00 Ann Marie C 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 [id number] ity of [facility] [id number] Sandip as MATERNAL [phone] Med ical & CHILD [address] [place] [address] 2021-05-22 2021-05-22 [facility]phone [facility] [id number] Univers 00:00:00 00:00:00 Ann Marie C 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 [id number] ity of [facility] [id number] Sandip as MATERNAL [id number] Med ical & CHILD 107 [facility] 2021-05-06 2021-05-06 Office [facility] [id number] Univers 14:00:00 15:32:01 Visit Zohreh Gabbi 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 [id number] it y of [facility] [id number] Sandip as MATERNAL [id number] [facility] [address] [place] [address] 2021-05-06 2021-05-06 [facility] [id number] Univers 14:00:00 15:32:01 ZOHREH maggietee [facility] 2021-05-06 2021-05-06 Outpatient [facility] [id number] Univers 14:00:00 14:00:00 ZOHREH herrera [facility] 2021-05-06 2021-05-06 Orders Doctor POON [id number] Univers 00:00:00 00:00:00 Only UnassignedDAKOTAH 350.1.13.10 ity of [facility] [id number] Sandip as [phone] [facility] [address] [place] 2021-04-23 2021-04-23 Emergency X [facility] ERT [id number] Univers 22:19:00 23:45:00 LOIS herrera [facility] 2021-04-23 2021-04-23 Emergency [facility] [id number] Univers 22:19:00 23:45:00 Lois SANTAMARIA 350.1.13.10 i ty of [place] 4.2.7.2.686 [facility] [id number] [facility] [address] [place] 2020-10-24 2020-10-24 Emergency [facility] [id number] 08:52:00 10:03:00 Ray Santamaria [id number] [place] [id number] [place] [id number] 2020-10-24 2020-10-24 Orders Doctor POON [id number] 00:00:00 00:00:00 Only UnassignedDAKOTAH [id number] [place] [facility] [id number] [id number] 2020-08-11 2020-08-12 Emergency [place], [facility] [id number] 22:18:00 01:10:00 Alanna Santamaria [id number] [place] [id number] [place] [id number] Results Test Description Test Time Test Comments Results Result Comments Source POCT TEST 2022-01-01 21:33:00 Test Item Value Reference Range Interpretation Comme nts POCT PREG (test code = 1605) negative On board controls acceptable with C Line (test code = 3574) yes POCT PREG LOT # (test code = 3575) [id number] POCT PREG TEST DATE (test code = 3576) 03/09/2023 Lab Interpretation (test code = 95048-2) Normal [facility]
--- NOTE | 2023-03-26 15:51 | RAD REPORT ---
EXAM DESCRIPTION: RAD - Chest Single View - 03/26/2023 3:45 pm CLINICAL HISTORY: COUGH Chest pain. COMPARISON: Chest Pa And Lat (2 Views) dated 03/31/2019 FINDINGS: Portable technique limits examination quality. The lungs are grossly clear. The heart is normal in size. No displaced fractures. IMPRESSION: No acute intrathoracic process suspected.
[2023-03-26 16:39] LABS: SARS-COV-2 RT PCR NEGATIVE (NEGATIVE)
--- NOTE | 2023-03-26 16:54 | EDPHYS ---
Physician Documentation [facility] Name: Xochitl Walters Age: 27 yrs Sex: Female : 1995 Arrival Date: 03/26/2023 Time: 14:58 Bed 9 Private MD: ED Physician Kamran Fair HPI: 03/26 15:20 This 27 yrs old Female presents to ER via Ambulatory with complaints of Fever. jh7 15:20 The patient reports fever, not measured (subjective). Onset: The symptoms/episode jh7 began/occurred yesterday. Modifying factors: The patient has had contact with sick son. Associated signs and symptoms: Pertinent positives: chest pain, chills, cough, myalgias, runny nose, Pertinent negatives: abdominal pain. Historical: - Allergies: 15:22 No Known Allergies; nj1 - PMHx: 15:22 None; nj1 - PSHx: 15:22 tubal ligation; nj1 - Immunization history:: Client reports having NOT received the Covid vaccine. - Social history:: Smoking status: Patient denies any tobacco usage or history of. ROS: 15:20 Eyes: Negative for injury, pain, redness, and discharge, Neck: Negative for injury, jh7 pain, and swelling, Cardiovascular: Negative for chest pain, palpitations, and edema, Abdomen/GI: Negative for abdominal pain, nausea, vomiting, diarrhea, and constipation, Back: Negative for injury and pain, MS/Extremity: Negative for injury and deformity, Skin: Negative for injury, rash, and discoloration, Neuro: Negative for headache, weakness, numbness, tingling, and seizure, 15:20 Constitutional: Positive for body aches, chills, fever, malaise, 15:20 ENT: Positive for nasal discharge, 15:20 Respiratory: Positive for cough, Negative for shortness of breath, 15:20 All other systems are negative, Exam: 15:20 Constitutional: This is a well developed, well nourished patient who is awake, alert, jh7 and in no acute distress. Head/Face: Normocephalic, atraumatic. Eyes: Pupils equal round and reactive to light, extra-ocular motions intact. Lids and lashes normal. Conjunctiva and sclera are non-icteric and not injected. Cornea within normal limits. Periorbital areas with no swelling, redness, or edema. Neck: Trachea midline, no thyromegaly or masses palpated, and no cervical lymphadenopathy. Supple, full range of motion without nuchal rigidity, or vertebral point tenderness. No Meningismus. Cardiovascular: Regular rate and rhythm with a normal S1 and S2. No gallops, murmurs, or rubs. Normal PMI, no JVD. No pulse deficits. Respiratory: Lungs have equal breath sounds bilaterally, clear to auscultation and percussion. No rales, rhonchi or wheezes noted. No increased work of breathing, no retractions or nasal flaring. Abdomen/GI: Soft, non-tender, with normal bowel sounds. No distension or tympany. No guarding or rebound. No evidence of tenderness throughout. Back: No spinal tenderness. No costovertebral tenderness. Full range of motion. Skin: Warm, dry with normal turgor. Normal color with no rashes, no lesions, and no evidence of cellulitis. MS/ Extremity: Pulses equal, no cyanosis. Neurovascular intact. Full, normal range of motion. Neuro: Awake and alert, GCS 15, oriented to person, place, time, and situation. Motor strength 5/5 in all extremities. Sensory grossly intact. Normal gait. 15:20 ENT: Nose: nasal drainage, and is seen coming from both nares, that is clear, Posterior pharynx: pooling of secretions, that are mild, Vital Signs: 15:20 BP 122 / 80; Pulse 102; Resp 18; Temp 99.2; Pulse Ox 99% ; Weight 73.94 kg; Height 5 nj1 ft. 4 in. ; Pain 8/10; 17:14 BP 121 / 79; Pulse 95; Resp 18 S; Pulse Ox 99% on R/A; ha1 15:20 Body Mass Index 27.98 (73.94 kg, 162.56 cm) [facility] 15:20 Pain Scale: Adult [facility] MDM: 14:59 Patient medically screened. [facility] 16:50 Differential diagnosis: viral Infection, bacterial infection, URI, bronchitis, jh7 pneumonia. Data reviewed: vital signs, nurses notes, radiologic studies, plain films. I considered the following discharge prescriptions or medication management in the emergency department Medications were administered in the Emergency Department. See MAR. Counseling: I had a detailed discussion with the patient and/or guardian regarding the historical points, exam findings, and any diagnostic results supporting the discharge/admit diagnosis, to return to the emergency department if symptoms worsen or persist or if there are any questions or concerns that arise at home. 03/26 15:10 Order name: COVID-19/FLU A+B; Complete Time: 16:47 [facility] 03/26 15:10 Order name: XRAY Chest (1 view); Complete Time: 15:53 [facility] Administered Medications: No medications were administered Disposition Summary: 03/26/23 16:54 Discharge Ordered Notes: Location: Home [facility] Problem: new [facility] Symptoms: are unchanged [facility] Condition: Stable [facility] Diagnosis - Viral syndrome [facility] - Exposure to flu [facility] Followup: [facility] - With: Private Physician - When: 2 - 3 days - Reason: Recheck today's complaints Discharge Instructions: - Discharge Summary Sheet [facility] - Influenza, Adult [facility] - Form - Excuse from Work, School, or Physical Activity [facility] - Viral Illness, Adult [facility] Forms: - Medication Reconciliation Form [facility] - Thank You Letter [facility] - Antibiotic Education [facility] - Patient Portal Instructions [facility] - Leadership Thank You Letter [facility] Prescriptions: - Bromfed DM 2-30-10 mg/5 mL Oral syrup - administer 10 milliliter ORAL route every 4-6 hours As needed as needed for [facility] cold symptoms; 240 milliliter; Refills: 0, Product Selection Permitted - albuterol sulfate 90 mcg/actuation Inhalation HFA Aerosol Inhaler - inhale 1 inhalation INHALATION route every 4-6 hours As needed; 1 Each; [facility] Refills: 0, Product Selection Permitted - Tamiflu 75 mg Oral capsule - take 1 tablet ORAL route every 12 hours for 5 days; 10 tablet; Refills: 0, [facility] Product Selection Permitted Addendum: 03/31/2023 07:20 Co-signature as Attending Physician, Kamran Fair MD I reviewed the patient's care r n provided by the Advanced Practice Provider and agree with the diagnosis and treatment plan. Signatures: Dispatcher [employer] Kamran Agosto MD MD rn Hadash, Jennifer, VEGETABLE PACKER VE[facility]ABLE P[facility]ERAbra[facility] Valencia Brito RN RN nj1
--- NOTE | 2023-03-26 16:54 | ER ---
Nurse's Notes [facility] Name: Xochitl Walters Age: 27 yrs Sex: Female : 1995 Arrival Date: 03/26/2023 Time: 14:58 Bed 9 Private MD: Diagnosis: Viral syndrome;Exposure to flu Presentation: 03/26 15:20 Chief complaint: Patient states: Cough, fever since this morning. Body aches. Has not nj1 taken any OTC meds. Coronavirus screen: Vaccine status: Patient reports being unvaccinated. Ebola Screen: Patient denies travel to an Ebola-affected area in the 21 days before illness onset. Initial Sepsis Screen: Does the patient meet any 2 criteria? HR > 90 bpm. No. Patient's initial sepsis screen is negative. Does the patient have a suspected source of infection? No. Patient's initial sepsis screen is negative. Risk Assessment: Do you want to hurt yourself or someone else? Patient reports no desire to harm self or others. Onset of symptoms was March 26, 2023. 15:20 Method Of Arrival: Ambulatory [facility] 15:20 Acuity: ANGELY 4 nj Historical: - Allergies: 15:22 No Known Allergies; nj1 - PMHx: 15:22 None; nj1 - PSHx: 15:22 tubal ligation; nj1 - Immunization history:: Client reports having NOT received the Covid vaccine. - Social history:: Smoking status: Patient denies any tobacco usage or history of. Screenin:29 [facility] ED Fall Risk Assessment (Adult) History of falling in the last 3 months, ha1 including since admission No falls in past 3 months (0 pts) Confusion or Disorientation No (0 pts) Intoxicated or Sedated No (0 pts) Impaired Gait No (0 pts) Mobility Assist Device Used No (0 pt) Altered Elimination No (0 pt) Score/Fall Risk Level 0 - 2 = Low Risk Oriented to surroundings, Maintained a safe environment, Educated pt \T\ family on fall prevention, incl call for assistance when getting out of bed, Hourly rounding (assess needs \T\ fall precautionary measures) done. Abuse screen: Denies threats or abuse. Denies injuries from another. Nutritional screening: No deficits noted. Tuberculosis screening: No symptoms or risk factors identified. Assessment: 15:22 General: Appears comfortable, Behavior is calm, cooperative. Pain: Complains of pain in ha1 body aches Pain does not radiate. Quality of pain is described as aching. Neuro: Level of Consciousness is awake, alert, obeys commands, Oriented to person, place, time, situation. Cardiovascular: Patient's skin is warm and dry. Respiratory: Reports cough that is productive, Airway is patent Respiratory effort is even, unlabored, Respiratory pattern is regular, symmetrical. 16:28 Reassessment: Patient and/or family updated on plan of care and expected duration. Pain ha1 level reassessed. Patient is alert, oriented x 3, equal unlabored respirations, skin warm/dry/pink. 17:13 Reassessment: Patient and/or family updated on plan of care and expected duration. Pain ha1 level reassessed. Patient is alert, oriented x 3, equal unlabored respirations, skin warm/dry/pink. Vital Signs: 15:20 BP 122 / 80; Pulse 102; Resp 18; Temp 99.2; Pulse Ox 99% ; Weight 73.94 kg; Height 5 nc1 ft. 4 in. ; Pain 8/10; 17:14 BP 121 / 79; Pulse 95; Resp 18 S; Pulse Ox 99% on R/A; ha1 15:20 Body Mass Index 27.98 (73.94 kg, 162.56 cm) [facility] 15:20 Pain Scale: Adult [facility] ED Course: 14:59 Patient arrived in ED. rg4 14:59 Rafia Bianchi FNP is [facility]. [facility] 14:59 Kamran Fair MD is Attending Physician. [facility] 15:22 Triage completed. nj1 15:22 Arm band placed on right wrist. nj1 15:22 Patient has correct armband on for positive identification. Placed in gown. Bed in low ha1 position. Call light in reach. Side rails up X 1. 15:47 XRAY Chest (1 view) In Process Unspecified. EDMS 15:51 Grazyna Bland, KEO is Primary Nurse. ha1 15:51 COVID-19/FLU A+B Sent. ha1 17:13 No provider procedures requiring assistance completed. Patient did not have IV access ha1 during this emergency room visit. 17:14 Provided Education on: medication administration . ha1 Administered Medications: No medications were administered Medication: 16:30 VIS not applicable for this client. ha1 Outcome: 16:54 Discharge ordered by . dilshad 17:13 Discharged to home ambulatory, with family, ha1 17:13 Condition: stable 17:13 Discharge instructions given to patient, family, Instructed on discharge instructions, follow up and referral plans. medication usage, Demonstrated understanding of instructions, follow-up care, medications, Prescriptions given X 3, 17:15 Patient left the ED. ha1 Signatures: Dispatcher [employer] EDKS Caridad Neff rg4 Rafia Bianchi, LIVESTOCK NUTRITION TERRITORY MANAGER LIVESTOCK NUTRITION TERRITORY MANAGER 7 Grazyna Bland, RN RN 1 Valencia Brito RN RN nj1 Corrections: (The following items were deleted from the chart) 15:22 15:20 Pulse 102bpm; Resp 18bpm; Pulse Ox 99%; Temp 99.2F; 73.94 kg; Height 5 ft. 4 in.; nj1 BMI: 27.9; Pain 8/10, Adult; nj1
[2023-03-26 17:32] VITALS: TEMP 99.2; O2SAT 99
[2023-03-26 17:34] VITALS: BP 121/79
== END 2023-03-26 17:15 | disposition home or self-care (01) ==
LOC: ER 14:58
DX: B34.9 Viral infection, unspecified (principal); Z20.828 Contact with and (suspected) exposure to other viral communicable diseases; Z11.52 Encounter for screening for COVID-19
CPT/HCPCS: 0240U; 71045; 99283

== ENCOUNTER 2024-04-07 15:09 | Emergency (ER) | payer SELFPAY ==
--- OUTSIDE RECORDS SUMMARY | 2024-04-07 15:11 | XMS REPORT | Continuity of Care Document ---
Author Name Unknown Address [address] [facility]. [address] [place] [address] [facility] Address [address] [facility] [address] [place] [address] Care Team Providers Care Director Acute Name Role Phone PCP, PATIENT DOES NOT HAVE A Primary Care Physic kevan Unavailable ANN MARIE CANALES Attending Clinician Unavail able HARDIK POLO Attending Clinician Unavailable Hardik Polo MD Attending Clinician [phone] Ally Ann Marie HERNANDEZ Attending Clinician + MIRIAM FAIRBANKS Attending Clinician Unavailab Zohreh Shi Attending Clinician [phone] ZOHREH GOMEZ Attending Clinician Unavailabl e Doctor Unassigned, [place] Attending Clinician U sanjayailLOIS Hanna Attending Clinician Unavailable Lois Skaggs Attending Clinician [phone] Ray East MD Attending Clinician [phone] Alanna Avendano Attending Clinician [phone] Payers Payer Name Policy Type Policy Number Effective Date Expirati on Date Source Problems Condition Name Condition Details Condition Category Status Onset Date Resolution Date Last Treatment Date Treating Clinician Comments Source Atypical squamous cell changes of undetermin ed significan ce (ASCUS) on cervical cytology with negative high risk human papilloma virus (HPV) test result Atypical squamous cell changes of undetermin ed significan ce (ASCUS) on cervical cytology with negative high risk human papilloma virus (HPV) test result Disease Active 05-28 00:00: 00 Overview: Formattin g of this note might be different from the original. Will need repeat pap in 3 years 05/2024 [facility] Status post tubal ligation Status post tubal ligation Disease Active 12-25 00:00: 00 [facility] Allergies, Adverse Reactions, Alerts Allergy Name Allergy Type Status Severity Reaction(s) Onset Date Inactive Date Treating Clinician Comments Source NO KNOWN ALLERGIE S Drug Class Active [facility] Social History Social Habit Start Date Stop Date Quantity Comments Source Exposure to SARS-CoV-2 (event) 2021-12-22 00:00:00 2022-01-01 13:43:00 Not sure [facility] Alcohol intake 2022-01-01 00:00:00 2022-01-01 00:00:00 Current non-drinker of alcohol (finding) [facility] Cigarettes smoked current (pack per day) - Reported 2021-05-06 00:00:00 2021-05-06 00:00:00 [facility] Tobacco use and exposure 2021-05-06 00:00:00 2021-05-06 00:00:00 Smokeless tobacco non-user [facility] History of tobacco use 2016-04-09 00:00:00 Cigarette Smoker [facility] Sex Assigned At 1995 00:00:00 1995 00:00:00 [facility] Smoking Status Start Date Stop Date Source Smokes tobacco daily 2021-05-06 00:00:00 [facility] Medications Ordered Medication Name Filled Medication Name Start Date Stop Date Current Medication? Ordering Clinician Indication Dosage Frequency Signature (SIG) Comments Components Source KCL (KLOR-CON M20) tablet 40 mEq 01-01 23:45: 00 01-01 22:46 :00 No 40meq 40 mEq, Oral, ONCE, 1 dose, On Rayna 01/01/22 at 1845, Routine [facility] ketorolac (TORADOL) injection 30 mg 01-01 22:45: 00 01-01 22:01 :00 No 30mg 30 mg, Slow IV Push, ONCE, 1 dose, On Rayna 01/01/22 at 1745, Routine [facility] ondansetron (ZOFRAN (PF)) injection 4 mg 01-01 21:45: 00 01-01 22:01 :00 No 4mg 4 mg, Slow IV Push, ONCE, 1 dose, On Rayna 01/01/22 at 1645, OPAL [facility] ibuprofen 800 mg tablet 01-01 00:00: 00 Yes [id number] 800mg Take 1 tablet by mouth every 8 (eight) hours as needed for Pain (scale 4-6) or Temp > 38.[address] [facility] dicyclomine 20 mg tablet 01-01 00:00: 00 Yes [id number] 20mg Take 1 tablet by mouth every 6 (six) hours as needed for Abdominal pain. [facility] ondansetron (ZOFRAN) 4 mg tablet 01-01 00:00: 00 Yes [id number] 4mg Take 1 tablet by mouth every 8 (eight) hours as needed for Nausea and Vomiting (N/V). [facility] No known medications 2020-05 14:51: [address] [facility] Vital Signs Vital Name Observation Time Observation Value Comments S ource Systolic blood pressure 2022-01-01 22:00:00 102 mm[Hg] [facility] Diastolic blood pressure 2022-01-01 22:00:00 73 mm[Hg] [facility] Heart rate 2022-01-01 22:00:00 72 /min [facility] Respiratory rate 2022-01-01 22:00:00 20 /min [facility] Oxygen saturation in Arterial blood by Pulse oximetry 2022-01-01 22:00:00 99 /min [facility] Body temperature 2022-01-01 18:45:00 37.22 Ashley [facility] Body height 2022-01-01 18:45:00 162.6 cm [facility] Body weight 2022-01-01 18:45:00 70.806 kg [facility] BMI 2022-01-01 18:45:00 26.79 kg/m2 [facility] Procedures Procedure Date / Time Performed Performing Clinicia n Source RAPID STREP SCREEN FOR GROUP A 2022-01-01 22:06:00 Hardik Polo [facility] COMP. METABOLIC PANEL (37738) 2022-01-01 21:34:00 Hardik Polo [facility] CBC WITH DIFF 2022-01-01 21:34:00 Hardik Polo [facility] COVID-19 (ID NOW RAPID TESTING) 2022-01-01 21:34:00 Hardik Polo [facility] POCT TEST 2022-01-01 21:33:00 Hardik Polo [facility] CONSENT/REFUSAL FOR DIAGNOSIS AND TREATMENT 2022-01-01 18:30:18 Doctor Unassigned, [place] [facility] Encounters Start Date/Time End Date/Time Encounter Type Admission Type Attending Clinicians Care Facility Care Department Encounter ID Source 2021-03-10 01:48:10 Emergency [facility] [id number] [facility] 2021-03-09 10:34:44 Emergency [facility] [id number] [facility] 2022-01-01 13:48:00 2022-01-01 18:02:00 Emergency X HARDIK POLO [facility] ERT [id number] [facility] 2022-01-01 13:48:00 2022-01-01 18:02:00 Emergency Hardik Polo [facility] [id number] [id number] [facility] 2021-07-30 00:00:00 2021-07-30 00:00:00 Telephone Ann Marie Canales [facility] SATELLITE INSTALLATION TECHNICIAN [facility] [id number] [facility] 2021-07-29 14:30:00 2021-07-29 14:30:00 Outpatient R FAIR[facility]ANKSMIRIAM [facility] [id number] [facility] 2021-07-07 13:30:00 2021-07-07 13:30:00 Outpatient R [facility]IR[facility]SMIRIAM [facility] [id number] [facility] 2021-06-09 09:30:00 2021-06-09 09:30:00 Outpatient R [facility]SMIRIAM [facility] [id number] [facility] 2021-06-06 09:30:00 2021-06-06 09:30:00 Outpatient R [facility] [id number] [facility] 2021-06-06 09:30:00 2021-06-06 09:30:00 Outpatient R [facility] [id number] [facility] 2021-06-06 09:30:00 2021-06-06 09:30:00 Outpatient R ANN MARIE CANALES [facility] [id number] [facility] 2021-05-28 00:00:00 2021-05-28 00:00:00 Telephone Ann Marie Canales [facility] SATELLITE INSTALLATION TECHNICIAN [facility]ILD [facility] ..[id number] [id number] [facility] 2021-05-22 00:00:00 2021-05-22 00:00:00 Telephone Ann Marie Canales [facility] SATELLITE INSTALLATION TECHNICIAN [facility]ILD [facility] ..[id number] [id number] [id number] [facility] 2021-05-06 14:00:00 2021-05-06 15:32:01 Office Visit Zohreh Gomez [facility] SATELLITE INSTALLATION TECHNICIAN [facility]ILD [facility] [id number] [facility] 2021-05-06 14:00:00 2021-05-06 15:32:01 Outpatient Angelina ZOHREH GOMEZ [facility] [id number] [facility] 2021-05-06 14:00:00 2021-05-06 14:00:00 Outpatient Angelina GOMEZ [facility] [id number] [facility] 2021-05-06 00:00:00 2021-05-06 00:00:00 Orders Only Doctor Unassigned, [place] [facility] [id number] [id number] [id number] [facility] 2021-04-23 22:19:00 2021-04-23 23:45:00 Emergency X LOIS YATES [facility] [id number] [facility] 2021-04-23 22:19:00 2021-04-23 23:45:00 Emergency YatesYohanaugusta Alfaro [facility] [id number] [id number] [id number] [facility] 2020-10-24 08:52:00 2020-10-24 10:03:00 Emergency Ray [facility] [id number] [id number] [id number] 2020-10-24 00:00:00 2020-10-24 00:00:00 Orders Only Doctor Unassigned, [place] [facility] [id number] [id number] [id number] [id number] 2020-08-11 22:18:00 2020-08-12 01:10:00 Emergency Alanna Wylie [facility] [id number] [id number] Results Test Description Test Time Test Comments Results Result Co mments Source [facility]
[2024-04-07 16:12] LABS: Absolute Lymphocytes (CBC) 1.3 K/uL (0.7-4.9); Absolute Monocytes 0.3 K/uL (0.1-1.3); Absolute Neutrophil 9.8 K/uL (1.8-8.0); Basophils % 0.4 % (0-1.3); Eosinophils % 0.4 % (0-4.4); Hematocrit 43.9 % (36.0-45.0); Hemoglobin 14.5 g/dL (12.0-15.0); Lymphocytes % 11.2 % (15.3-44.8); MCH 31.8 pg (27.0-35.0); MCHC 33.1 g/dL (32.0-36.0); MCV 96.2 fL (80-100); Monocytes % 2.4 % (3.3-12.3); Neutrophils % 85.6 % (41.7-73.7); Platelets 290 thou/uL (152-406); RBC Red Blood Cell Count 4.57 M/uL (3.86-4.86); Red Cell Distribution Width 12.7 % (12.1-15.2)
[2024-04-07 16:13] LABS: Specific Gravity > 1.030 (1.005-1.030)
[2024-04-07 16:15] LABS: Specific Gravity > 1.030 (1.005-1.030); Urine Bacteria None Seen /HPF (<20); Urine Bilirubin NEGATIVE (Negative); Urine Blood 3+ (OVER) (Negative); Urine Clarity Extremely Turbid (Clear); Urine Color Yellow (Yellow); Urine Crystals Unidentified Few /HPF (None Seen); Urine Culture Reflex Order NOT NEEDED; Urine Glucose NEGATIVE (Negative); Urine Ketones 1+ (Negative); Urine Microscopic Reflex YN ORDER UMIC; Urine Mucus 1+ /HPF (None Seen); Urine Nitrite NEGATIVE (Negative); Urine Protein 2+ (Negative); Urine RBC >50 /HPF (None Seen); Urine Urobilinogen Normal (Normal); Urine WBC <5 /HPF (<5); Urine pH 7.5 (5.0-7.0)
[2024-04-07 16:26] LABS: SARS-CoV-2 Antigen CONTROL BLUE LINE VIS/BG OK; SARS-CoV-2 Antigen Rapid Res Negative (Negative)
[2024-04-07 16:29] LABS: Anion Gap 9.6 mEq/L (5.0-15.0); Bilirubin Total 0.4 mg/dL (0.2-1.0); Potassium 3.6 mEq/L (3.5-5.1)
[2024-04-07] MEDS ORDERED: NA CHLORIDE 0.9% 1,000 ML ONE (16:52)
[2024-04-07] MEDS ORDERED: FAMOTIDINE 20 MG/2 ML VIAL IV ONE (16:52)
[2024-04-07] MEDS ORDERED: KETOROLAC 30 MG/ML INJ ONE (16:52)
[2024-04-07] MEDS ORDERED: ONDANSETRON 4 MG/2 ML VIAL ONE (16:52)
--- NOTE | 2024-04-07 17:27 | RAD REPORT ---
EXAMINATION: CT ABDOMEN AND PELVIS WITH CONTRAST CLINICAL INDICATION: Female, 28 years old.ABD PAIN TECHNIQUE: CT abdomen and pelvis was performed, after the administration of IV contrast, [facility]. Axial, sagittal and coronal reconstructions were obtained. One or more of the following dose reduction techniques were used: Automated exposure control, adjustment of the mA and/o r kV according to patient size, and/or iterative reconstruction. Unless otherwise specified, incidental findings do not require dedicated imaging follow-up. [id number]. COMPARISON: No prior exam. FINDINGS: LOWER CHEST: Small hiatal hernia. LIVER: Hepatic steatosis GALLBLADDER/BILE DUCT: No biliary ductal dilatation.? PANCREAS: No significant abnormality. SPLEEN: Normal size. No focal lesion. ADRENALS: Normal; no mass. KIDNEYS AND URETERS: Normal size and contour. No hydronephrosis. GASTROINTESTINAL TRACT: Mild diffuse colonic wall thickening versus underdistention. Normal appendix. No bowel obstruction. PERITONEUM: No ascites. LYMPH NODES: No lymphadenopathy. ABDOMINAL AORTA AND OTHER VESSELS: Normal caliber aorta and IVC. URINARY BLADDER: Normal contour. REPRODUCTIVE ORGANS: No pathologic process MUSCULOSKELETAL: No acute or suspicious osseous abnormality. ADDITIONAL FINDINGS: None. IMPRESSION: Possible mild colitis. Normal appendix.
--- NOTE | 2024-04-07 17:33 | ER ---
Nurse's Notes [facility] Name: Xochitl Walters Age: 28 yrs Sex: Female : 1995 Arrival Date: 04/07/2024 Time: 15:09 Bed 15 Private MD: Diagnosis: Left sided colitis Presentation: 04/07 15:38 Chief complaint: Patient states: n/v/d since last night. Abdominal pain in all tm6 quadrants, "feels like a contraction." Reports diarrhea being a black color. Coronavirus screen: Client denies travel out of the [place] in the last 14 days. Ebola Screen: Patient negative for fever greater than or equal to 101.5 degrees Fahrenheit, and additional compatible Ebola Virus Disease symptoms Patient denies exposure to infectious person. Patient denies travel to an Ebola-affected area in the 21 days before illness onset. No symptoms or risks identified at this time. Initial Sepsis Screen: Does the patient meet any 2 criteria? No. Patient's initial sepsis screen is negative. Does the patient have a suspected source of infection? No. Patient's initial sepsis screen is negative. Risk Assessment: Do you want to hurt yourself or someone else? Patient reports no desire to harm self or others. Onset of symptoms was April 06, 2024. 15:38 Method Of Arrival: Ambulatory tm6 15:38 Acuity: ANGELY 3 tm6 Triage Assessment: 15:40 General: Appears uncomfortable, Behavior is calm, cooperative. Pain: Complains of pain tm6 in abdomen Pain currently is 8 out of 10 on a pain scale. Pain began 1 day ago. EENT: No signs and/or symptoms were reported regarding the EENT system. Neuro: Level of Consciousness is awake, alert, obeys commands, Oriented to person, place, time, situation. Cardiovascular: Patient's skin is warm and dry. Respiratory: Airway is patent Respiratory effort is even, unlabored, Respiratory pattern is regular, symmetrical. GI: Abdomen is flat, non-distended, Reports lower abdominal pain, upper abdominal pain, diarrhea, nausea, vomiting, since last night. : No signs and/or symptoms were reported regarding the genitourinary system. Derm: No signs and/or symptoms reported regarding the dermatologic system. Musculoskeletal: No signs and/or symptoms reported regarding the musculoskeletal system. 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 - Infectious Disease History:: Denies. - Social history:: Smoking status: Reported history of juuling and/or vaping. Patient uses alcohol, occasionally. Screenin:00 [facility] ED Fall Risk Assessment (Adult) History of falling in the last 3 months, jl7 including since admission No falls in past 3 months (0 pts) Confusion or Disorientation No (0 pts) Intoxicated or Sedated No (0 pts) Impaired Gait No (0 pts) Mobility Assist Device Used No (0 pt) Altered Elimination No (0 pt) Score/Fall Risk Level 0 - 2 = Low Risk Oriented to surroundings, Maintained a safe environment. 18:00 Abuse screen: Denies threats or abuse. Denies injuries from another. Nutritional jl7 screening: No deficits noted. Tuberculosis screening: No symptoms or risk factors identified. Assessment: 15:30 General: Appears in no apparent distress. uncomfortable, Behavior is calm, cooperative, jl7 appropriate for age. Pain: Complains of pain in right upper quadrant and right lower quadrant Pain currently is 8 out of 10 on a pain scale. Neuro: Level of Consciousness is awake, alert, obeys commands, Oriented to person, place, time, situation. Cardiovascular: Patient's skin is warm and dry. Respiratory: Airway is patent Respiratory effort is even, unlabored, Respiratory pattern is regular, symmetrical. GI: Abdomen is non-distended. : Denies burning with urination. Derm: Skin is pink, warm \\T\\ dry. 17:00 Reassessment: Patient appears in no apparent distress at this time. No changes from jl7 previously documented assessment. Patient and/or family updated on plan of care and expected duration. Pain level reassessed. Patient is alert, oriented x 3, equal unlabored respirations, skin warm/dry/pink. 18:00 Reassessment: Pt awaiting transportation for discharge. jl7 18:14 Reassessment: Pt reports itching, hives noted on face and chest, ERP notified, see MAR jl7 for orders. 18:50 Reassessment: Patient appears in no apparent distress at this time. Patient is alert, jl7 oriented x 3, equal unlabored respirations, skin warm/dry/pink. Patient states feeling better. Patient states symptoms have improved. Vital Signs: 15:38 BP 113 / 74; Pulse 67; Resp 19; Temp 99.1(O); Pulse Ox 98% on R/A; MAP 87 mmHg; Weight tm6 77.11 kg; Height 5 ft. 3 in. ; Pain 8/10; 17:50 BP 112 / 76; Pulse 71; Resp 15; Pulse Ox 98% ; jl7 18:59 BP 106 / 68; Pulse 65; Resp 15; Pulse Ox 100% ; jl7 15:38 Body Mass Index 30.11 (77.11 kg, 160.02 cm) tm6 15:38 Pain Scale: Adult tm6 ED Course: 15:11 Patient arrived in ED. mr 15:24 Niki Ayoub PA-C is [facility]. sb4 15:24 Naseem Sahu MD is Attending Physician. sb4 15:24 Josué Andrade MD is Attending Physician. sb4 15:33 Felix Gaming, KEO is Primary Nurse. jl7 15:40 Triage completed. tm6 15:40 Arm band placed on right wrist. tm6 15:58 Radiology exam delayed due to lab results not completed at this time. test jc4 not completed at this time. IV insertion attempt and/or patient not having appropriate IV at this time. 16:00 Patient has correct armband on for positive identification. Bed in low position. Call jl7 light in reach. Side rails up X 1. Provided Education on: use of call valverde. 16:00 Initial lab(s) drawn, by me, sent to lab. Inserted saline lock: 20 gauge in right jl7 antecubital area, using aseptic technique. Blood collected. Flushed with 10 mL NS. 17:13 CT Abd/Pelvis - IV Contrast Only In Process Unspecified. EDMS 18:23 No provider procedures requiring assistance completed. jl7 19:00 IV discontinued, intact, bleeding controlled, No redness/swelling at site. Pressure jl7 dressing applied. Administered Medications: 16:40 Drug: Famotidine IVP 20 mg IVP once; dilute with 10 mL 0.9% NaCl; give over 2 minutes rs5 Route: IVP; Site: right antecubital; 19:36 Follow up: Response: No adverse reaction jl7 16:40 Drug: TORadol - Ketorolac IVP 15 mg IVP once Route: IVP; Site: right antecubital; rs5 17:00 Follow up: Response: No adverse reaction jl7 16:40 Drug: Ondansetron IVP 4 mg IVP once; over 2 minutes Route: IVP; Site: right antecubital;rs5 17:00 Follow up: Response: No adverse reaction jl7 16:40 Drug: NS 0.9% IV 1000 ml IV at 1 bolus Per protocol; to be given as a bolus over 60 rs5 minutes Route: IV; Rate: 1 bolus; Site: right antecubital; 18:00 Follow up: Response: No adverse reaction; IV Status: Completed infusion; IV Intake: jl7 1000ml 17:59 Drug: Ciprofloxacin PO 500 mg PO once Route: PO; jl7 18:14 Follow up: Response: Adverse reaction, Physician notified jl7 17:59 Drug: metroNIDAZOLE PO 500 mg PO once Route: PO; jl7 18:15 Follow up: Response: No adverse reaction jl7 18:18 Drug: diphenhydrAMINE IVP 25 mg IVP once Route: IVP; Site: right antecubital; rs5 18:45 Follow up: Response: No adverse reaction; Marked relief of symptoms jl7 Medication: 18:00 VIS not applicable for this client. jl7 Intake: 18:00 IV: 1000ml; Total: 1000ml. jl7 Outcome: 17:32 Discharge ordered by . roseann 19:00 Discharged to home ambulatory, with friend, jl7 19:00 Condition: stable 19:00 Discharge instructions given to patient, friend, Instructed on discharge instructions, follow up and referral plans. medication usage, Demonstrated understanding of instructions, follow-up care, medications, Prescriptions given X 4, 19:00 Patient left the ED. jl7 Signatures: Dispatcher [employer] EDNM Kandi Odell, Leif McmahanalFelix, RN RN jl7 Niki Ayoub, PA-C PA-C sb4 Johnathon García RN RN rs5 Vani Rubin RN RN tm6 Brodie Brody jc4
--- NOTE | 2024-04-07 17:33 | EDPHYS ---
Physician Documentation [facility] Name: Xochitl Walters Age: 28 yrs Sex: Female : 1995 Arrival Date: 04/07/2024 Time: 15:09 Bed 15 Private MD: ED Physician Josué Andrade HPI: 04/07 16:42 This 28 yrs old Female presents to ER via Ambulatory with complaints of sb4 Abdominal Pain, Sore Throat, Vomiting. 16:42 patient reports abdominal pain, nausea, vomiting, diarrhea, sore throat x 2 days. sb4 denies any sick contacts. no chest pain or shortness of breath. has felt "hot" but no recorded fever. 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 - Infectious Disease History:: Denies. - Social history:: Smoking status: Reported history of juuling and/or vaping. Patient uses alcohol, occasionally. ROS: 16:42 Constitutional: Negative for fever, chills, and weight loss, sb4 16:42 ENT: Positive for sore throat, 16:42 Respiratory: 16:42 Abdomen/GI: Positive for abdominal pain, nausea, vomiting, and diarrhea, 16:42 All other systems are negative, Exam: 16:42 Constitutional: This is a well developed, well nourished patient who is awake, alert, sb4 and in no acute distress. Head/Face: Normocephalic, atraumatic. Eyes: Extra-ocular motions intact. Periorbital areas with no swelling, redness, or edema. ENT: Mucous membranes moist. Cardiovascular: Regular rate and rhythm with a normal S1 and S2. Respiratory: No increased work of breathing, no retractions or nasal flaring. Abdomen/GI: Soft, non-tender, no distension. Skin: Warm, dry with normal turgor. Normal color with no rashes, no lesions, and no evidence of cellulitis. Vital Signs: 15:38 BP 113 / 74; Pulse 67; Resp 19; Temp 99.1(O); Pulse Ox 98% on R/A; MAP 87 mmHg; Weight tm6 77.11 kg; Height 5 ft. 3 in. ; Pain 8/10; 17:50 BP 112 / 76; Pulse 71; Resp 15; Pulse Ox 98% ; jl7 18:59 BP 106 / 68; Pulse 65; Resp 15; Pulse Ox 100% ; jl7 15:38 Body Mass Index 30.11 (77.11 kg, 160.02 cm) tm6 15:38 Pain Scale: Adult tm6 MDM: 15:32 Medical Screening Exam initiated sb4 17:32 Data reviewed: vital signs, nurses notes, lab test result(s), radiologic studies, and sb4 as a result, I will discharge patient. Counseling: I had a detailed discussion with the patient and/or guardian regarding the historical points, exam findings, and any diagnostic results supporting the discharge/admit diagnosis, lab results, radiology results, to return to the emergency department if symptoms worsen or persist or if there are any questions or concerns that arise at home. 04/07 15:50 Order name: CBC with Diff; Complete Time: 16:13 sb4 04/07 15:50 Order name: CMP; Complete Time: 16:29 sb4 04/07 15:50 Order name: Lipase; Complete Time: 16:29 sb4 04/07 15:50 Order name: Test, Urine; Complete Time: 16:20 sb4 04/07 15:50 Order name: Urinalysis w/ reflexes; Complete Time: 16:20 sb4 04/07 15:50 Order name: SARS RAPID; Complete Time: 16:27 sb4 04/07 15:50 Order name: Flu; Complete Time: 16:38 sb4 04/07 15:50 Order name: Strep sb4 04/07 16:30 Order name: Throat Culture EDCT 04/07 15:50 Order name: CT Abd/Pelvis - IV Contrast Only; Complete Time: 17:28 sb4 04/07 15:50 Order name: IV Saline Lock; Complete Time: 16:12 sb4 04/07 15:50 Order name: Labs collected and sent; Complete Time: 16:12 sb4 Administered Medications: 16:40 Drug: Famotidine IVP 20 mg IVP once; dilute with 10 mL 0.9% NaCl; give over 2 minutes rs5 Route: IVP; Site: right antecubital; 19:36 Follow up: Response: No adverse reaction jl7 16:40 Drug: TORadol - Ketorolac IVP 15 mg IVP once Route: IVP; Site: right antecubital; rs5 17:00 Follow up: Response: No adverse reaction jl7 16:40 Drug: Ondansetron IVP 4 mg IVP once; over 2 minutes Route: IVP; Site: right antecubital;rs5 17:00 Follow up: Response: No adverse reaction jl7 16:40 Drug: NS 0.9% IV 1000 ml IV at 1 bolus Per protocol; to be given as a bolus over 60 rs5 minutes Route: IV; Rate: 1 bolus; Site: right antecubital; 18:00 Follow up: Response: No adverse reaction; IV Status: Completed infusion; IV Intake: jl7 1000ml 17:59 Drug: Ciprofloxacin PO 500 mg PO once Route: PO; jl7 18:14 Follow up: Response: Adverse reaction, Physician notified jl7 17:59 Drug: metroNIDAZOLE PO 500 mg PO once Route: PO; jl7 18:15 Follow up: Response: No adverse reaction jl7 18:18 Drug: diphenhydrAMINE IVP 25 mg IVP once Route: IVP; Site: right antecubital; rs5 18:45 Follow up: Response: No adverse reaction; Marked relief of symptoms jl7 Disposition Summary: 04/07/24 17:32 Discharge Ordered Notes: Location: Home sb4 Problem: new sb4 Symptoms: have improved sb4 Condition: Stable sb4 Diagnosis - Left sided colitis sb4 Followup: sb4 - With: Emergency Department - When: As needed - Reason: Fever > 102 F, Worsening of condition Discharge Instructions: - Discharge Summary Sheet sb4 - Colitis sb4 Forms: - Antibiotic Education sb4 - Patient Portal Instructions sb4 - Leadership Thank You Letter sb4 Prescriptions: - Augmentin 875-125 mg Oral Tablet - take 1 tablet ORAL route every 12 hours for 10 days; 20 tablet; Refills: 0, sb4 Product Selection Permitted - dicyclomine 10 mg Oral capsule - take 1 capsule ORAL route 3 times per day As needed; 20 capsule; Refills: 0, sb4 Product Selection Permitted Signatures: Dispatcher [employer] Felix Cordova RN RN [id number] Niki Ayoub PA-C PA-C sb4 Johnathon García RN RN rs5 Vani Rubin, RN RN tm6
[2024-04-07] MEDS ORDERED: metroNIDAZOLE 500 MG TABLET ONE (17:43)
[2024-04-07] MEDS ORDERED: CIPROFLOXACIN HCL 500 MG TAB ONE (17:44)
[2024-04-07] MEDS ORDERED: DIPHENHYDRAMINE 50 MG/ML VIAL ONE (18:16)
[2024-04-07 22:33] VITALS: TEMP 99.1
[2024-04-07 22:35] VITALS: BP 106/68; O2SAT 100
== END 2024-04-07 19:00 | disposition home or self-care (01) ==
LOC: ER 15:09
DX: K51.50 Left sided colitis without complications (principal); Z11.52 Encounter for screening for COVID-19
CPT/HCPCS: 36415; 74177; 80053; 81001; 81025; 83690; 85025; 87070; 87081; 87804; 87811; 96361; 96374; 96375; 99284; J1200; J2405; J7030; Q9967